=== PATIENT | male | born 1955 ===

== ENCOUNTER 2020-08-09 09:32 | Outpatient (REF) | payer MEDICARE, MEDICAID, SELFPAY ==
[2020-08-09 12:23] LABS: Vitamin D 25-OH Total 5.8 ng/mL (>30)
[2020-08-09 12:55] LABS: Alanine Aminotransferase 56 U/L (0-40); Anion Gap 16 (12-20); Aspartate Amino Transferase 72 U/L (5-37); Blood Urea Nitrogen 11 mg/dL (9-16); Calcium 8.5 mg/dL (8.4-10.2); Carbon Dioxide 24 mmol/L (22-29); Chloride 102 mmol/L (96-108); Cholesterol 263 mg/dL; Estimated Glomerular Filt Rate > 60; Glucose Fasting 245 mg/dL (60-99); HDL Cholesterol 32 mg/dL; Potassium 3.9 mmol/L (3.3-5.1); Sodium 138 mmol/L (135-145); Triglycerides 807 mg/dL
== END 2020-08-09 09:33 | disposition home or self-care (01) ==
LOC: HO.HMGCLDS 09:32
PROVIDERS: PCP Internal Medicine; Visit Provider Internal Medicine
DX: E78.2 Mixed hyperlipidemia (principal); I10 Essential (primary) hypertension
CPT/HCPCS: 36415; 80048; 80061; 82306; 84450; 84460

== ENCOUNTER 2020-08-22 13:57 | Outpatient (REF) | payer MEDICARE, MEDICAID, SELFPAY ==
--- NOTE | ~2020-08-22 | MM_ITS ---
EXAMINATION: MM DIAGNOSTIC DIGITAL BREAST TOMOSYNTHESIS, BILATERAL US DIAGNOSTIC ULTRASOUND BREAST, RIGHT CLINICAL INFORMATION: 64-year-old male with tenderness and mild fullness retroareolar right breast. No discharge. No prior breast imaging. No known family history breast cancer. COMPARISON: None (current study represents initial baseline exam). TECHNIQUE: Digital breast tomosynthesis is performed in both the craniocaudal and mediolateral oblique views along with computer-aided detection (CAD). Synthesized 2D images are generated from the tomosynthesis. Additional left MLO view is provided. Ultrasound right breast is targeted to the retroareolar and periareolar region. Grayscale imaging and color Doppler are performed without and with harmonics. FINDINGS: There are scattered areas of fibroglandular density (ACR BI-RADS breast composition Category b). There is mild to moderate right gynecomastia retroareolar breast with lesser involvement on left. There is no mass or architectural abnormality. No abnormal calcifications. The axilla and skin contours are unremarkable. Ultrasound right breast demonstrates retroareolar gynecomastia type ultrasound appearance. There is no cystic or solid mass or architectural abnormality. No skin thickening or edema tracking in the soft tissue planes. Results are discussed with the patient at time of visit. MM/MM tomosynthesis diagnostic BI IMPRESSION: Mild to moderate gynecomastia retroareolar pattern, greater on right. Unremarkable targeted right breast ultrasound. ASSESSMENT: BI-RADS 2: Benign RECOMMENDATION: Patient should be managed based on the clinical impression.
== END 2020-08-22 13:58 | disposition home or self-care (01) ==
LOC: HO.MAMMO 13:57
PROVIDERS: PCP Internal Medicine; Visit Provider Internal Medicine
DX: N63.41 Unspecified lump in right breast, subareolar (principal)
CPT/HCPCS: 76642; 77062; 77066

== ENCOUNTER → 2021-05-16 10:23 | Outpatient (BNVA) | payer MEDICARE, SELFPAY | PROVIDERS: PCP Internal Medicine; Visit Provider Surgery | DX: R22.2 Localized swelling, mass and lump, trunk (principal); N28.1 Cyst of kidney, acquired; Z79.899 Other long term (current) drug therapy; Z79.4 Long term (current) use of insulin | CPT/HCPCS: 99212 ==

== ENCOUNTER → 2021-06-20 07:54 | Outpatient (BNVA) | payer MEDICARE, SELFPAY | PROVIDERS: PCP Internal Medicine; Visit Provider Surgery | DX: R22.2 Localized swelling, mass and lump, trunk (principal); C79.51 Secondary malignant neoplasm of bone; C64.9 Malignant neoplasm of unspecified kidney, except renal pelvis | CPT/HCPCS: 99212 ==

== ENCOUNTER 2022-01-31 07:17 | Outpatient (REF) | payer OTHER, SELFPAY ==
[2022-01-31 12:15] LABS: Alanine Aminotransferase 22 U/L (0-40); Anion Gap 11 (12-20); Aspartate Amino Transferase 32 U/L (5-37); Blood Urea Nitrogen 10 mg/dL (9-16); Calcium 9.8 mg/dL (8.4-10.2); Carbon Dioxide 30 mmol/L (22-29); Chloride 96 mmol/L (96-108); Cholesterol 265 mg/dL; Estimated Glomerular Filt Rate > 60; Free T4 (Free Thyroxine) 1.02 ng/dL (0.71-1.85); Glucose Fasting 171 mg/dL (60-99); HDL Cholesterol 36 mg/dL; LDL Cholesterol Calculated 152 mg/dl; Potassium 4.2 mmol/L (3.3-5.1); Sodium 133 mmol/L (135-145); Thyroid Stimulating Hormone 36.12 uIU/mL (0.32-4.0); Triglycerides 385 mg/dL; Vitamin D 25-OH Total 9.4 ng/mL (>30)
[2022-01-31 12:32] LABS: Folate 14.4 ng/mL (> or = 4.0); Vitamin B12 293 pg/mL (200-900)
[2022-02-02 05:04] LABS: LDL Cholesterol Direct 166 mg/dL (<100)
== END 2022-01-31 07:18 | disposition home or self-care (01) ==
LOC: HO.HMGCLDS 07:17
PROVIDERS: PCP Internal Medicine; Visit Provider Internal Medicine
DX: C64.9 Malignant neoplasm of unspecified kidney, except renal pelvis (principal); C79.51 Secondary malignant neoplasm of bone; E03.9 Hypothyroidism, unspecified; E78.2 Mixed hyperlipidemia; I10 Essential (primary) hypertension; Z78.9 Other specified health status
CPT/HCPCS: 36415; 80048; 80061; 82306; 82607; 82746; 83721; 84439; 84443; 84450; 84460

== ENCOUNTER 2022-03-16 11:34 | Outpatient (REF) | payer OTHER, SELFPAY ==
[2022-03-16 13:58] LABS: MANUAL DIFF FLAG NO
[2022-03-16 14:03] LABS: Basophils Percent Auto 0.9 % (0-2); Eosinophils Absolute Auto 0.3 X10*3/uL (0.0-0.4); Eosinophils Percent Auto 9.2 % (0-4); Hematocrit 34.4 % (42.0-52.0); Hemoglobin 12.2 g/dl (14.0-18.0); Lymphocytes Absolute Auto 1.7 X10*3/uL (1.2-4.9); Lymphocytes Percent Auto 51.7 % (20-40); Mean Corpuscular HGB Conc 35.5 g/dl (31.0-36.0); Mean Corpuscular Hemoglobin 32.7 pg (27.0-33.0); Mean Corpuscular Volume 92.2 fL (80.0-98.0); Monocytes Absolute Auto 0.2 X10*3/uL (0.1-1.2); Monocytes Percent Auto 5.2 % (2-11); Neutrophils Absolute Auto 1.1 x10*3/uL (2.0-8.3); Platelet Count 181 X10*3/uL (160-400); Red Blood Count 3.73 X10*6/uL (4.60-5.80); Red Cell Distribution Width 15.3 % (11.0-16.0); White Blood Count 3.3 X10*3/uL (4.8-10.8)
[2022-03-16 14:16] LABS: Alanine Aminotransferase 19 U/L (0-40); Albumin Level 4.1 g/dL (3.5-5.0); Alkaline Phosphatase 112 U/L (39-117); Anion Gap 15 (12-20); Aspartate Amino Transferase 31 U/L (5-37); Bilirubin Total 0.8 mg/dL (0.0-1.0); Blood Urea Nitrogen 11 mg/dL (9-16); Calcium 9.1 mg/dL (8.4-10.2); Carbon Dioxide 28 mmol/L (22-29); Chloride 97 mmol/L (96-108); Estimated Glomerular Filt Rate > 60; Glucose Random 252 mg/dL (60-115); Lipase 10 U/L (8-78); Potassium 3.8 mmol/L (3.3-5.1); Sodium 136 mmol/L (135-145); Total Protein 6.7 g/dL (6.5-8.0)
== END 2022-03-16 11:35 | disposition home or self-care (01) ==
LOC: HO.HMGCLDS 11:34
PROVIDERS: PCP Internal Medicine; Visit Provider Emergency Medicine
DX: R10.9 Unspecified abdominal pain (principal); R53.1 Weakness; R17 Unspecified jaundice
CPT/HCPCS: 36415; 80053; 83690; 85025

== ENCOUNTER 2022-04-16 10:57 | Outpatient (REF) | payer OTHER, SELFPAY ==
--- NOTE | ~2022-04-16 | XR_ITS ---
EXAMINATION: XR KNEE, RIGHT CLINICAL INFORMATION: Right knee pain. COMPARISON: None TECHNIQUE: Four views of the right knee. FINDINGS: No significant tricompartmental degenerative joint changes are seen. There is no acute fracture or dislocation. There is a small suprapatellar joint effusion. The soft tissues are unremarkable. XR/XR knee RT 4V IMPRESSION: Small suprapatellar joint effusion. No acute fracture or significant degenerative joint changes.
== END 2022-04-16 10:58 | disposition home or self-care (01) ==
LOC: HO.HMGCX 10:57
PROVIDERS: PCP Internal Medicine; Visit Provider Internal Medicine
DX: M25.561 Pain in right knee (principal)
CPT/HCPCS: 73564

== ENCOUNTER 2022-05-21 09:40 | Outpatient (REF) | payer OTHER, SELFPAY ==
--- NOTE | ~2022-05-21 | XR_ITS ---
EXAMINATION: XR KNEE AP STANDING X-ray right knee CLINICAL INFORMATION: Knee pain COMPARISON: X-ray right knee 04/16/2022 TECHNIQUE: AP bilateral standing view of the knees was obtained.) Right knee 1 skyline view FINDINGS: Right knee: Minimal medial compartment joint space narrowing. No acute fracture or dislocation. No abnormal soft tissue calcification. Left knee: Minimal medial compartment joint space narrowing. No acute findings.. XR/XR knee standing BI IMPRESSION: Right knee: Minimal medial compartment joint space narrowing
--- NOTE | ~2022-05-21 | XR_ITS ---
EXAMINATION: XR KNEE AP STANDING X-ray right knee CLINICAL INFORMATION: Knee pain COMPARISON: X-ray right knee 04/16/2022 TECHNIQUE: AP bilateral standing view of the knees was obtained.) Right knee 1 skyline view FINDINGS: Right knee: Minimal medial compartment joint space narrowing. No acute fracture or dislocation. No abnormal soft tissue calcification. Left knee: Minimal medial compartment joint space narrowing. No acute findings.. XR/XR knee RT 1V IMPRESSION: Right knee: Minimal medial compartment joint space narrowing
== END 2022-05-21 09:41 | disposition home or self-care (01) ==
LOC: HO.HOSX 09:40
PROVIDERS: Visit Provider Physician Assistant
DX: M23.91 Unspecified internal derangement of right knee (principal); M25.561 Pain in right knee; E11.65 Type 2 diabetes mellitus with hyperglycemia; E11.21 Type 2 diabetes mellitus with diabetic nephropathy; Z79.4 Long term (current) use of insulin
CPT/HCPCS: 20610; 73560; 73565; 99202; J1020

== ENCOUNTER 2022-09-14 11:34 | Outpatient (REF) | payer OTHER, SELFPAY ==
[2022-09-14 14:31] LABS: Alanine Aminotransferase 11 U/L (0-40); Anion Gap 12 (12-20); Aspartate Amino Transferase 23 U/L (5-37); Blood Urea Nitrogen 12 mg/dL (9-16); Calcium 9.6 mg/dL (8.4-10.2); Carbon Dioxide 32 mmol/L (22-29); Chloride 100 mmol/L (96-108); Cholesterol 155 mg/dL; Estimated Glomerular Filt Rate > 60; Glucose Fasting 229 mg/dL (60-99); HDL Cholesterol 39 mg/dL; LDL Cholesterol Calculated 57 mg/dl; Potassium 3.2 mmol/L (3.3-5.1); Sodium 141 mmol/L (135-145); Triglycerides 296 mg/dL
[2022-09-14 15:22] LABS: Vitamin D 25-OH Total 33.8 ng/mL (>30)
== END 2022-09-14 11:35 | disposition home or self-care (01) ==
LOC: HO.HMGCLDS 11:34
PROVIDERS: PCP Internal Medicine; Visit Provider Internal Medicine
DX: E55.9 Vitamin D deficiency, unspecified (principal); E78.2 Mixed hyperlipidemia; F32.A Depression, unspecified; I10 Essential (primary) hypertension
CPT/HCPCS: 36415; 80048; 80061; 82306; 84450; 84460

== ENCOUNTER 2022-09-18 12:21 | Outpatient (REF) | payer OTHER, SELFPAY ==
[2022-09-18 15:55] LABS: Magnesium 1.3 mg/dL (1.6-2.6); Potassium 3.5 mmol/L (3.3-5.1)
== END 2022-09-18 12:22 | disposition home or self-care (01) ==
LOC: HO.HMGCLDS 12:21
PROVIDERS: PCP Internal Medicine; Visit Provider Internal Medicine
DX: E87.6 Hypokalemia (principal)
CPT/HCPCS: 36415; 83735; 84132

== ENCOUNTER 2022-09-21 09:22 | Outpatient (REF) | payer OTHER, SELFPAY ==
[2022-09-21 12:47] LABS: Anion Gap 12 (12-20); Blood Urea Nitrogen 8 mg/dL (9-16); Calcium 8.9 mg/dL (8.4-10.2); Carbon Dioxide 26 mmol/L (22-29); Chloride 103 mmol/L (96-108); Estimated Glomerular Filt Rate > 60; Glucose Random 236 mg/dL (60-115); Magnesium 1.5 mg/dL (1.6-2.6); Potassium 3.9 mmol/L (3.3-5.1); Sodium 137 mmol/L (135-145)
== END 2022-09-21 09:23 | disposition home or self-care (01) ==
LOC: HO.HMGCLDS 09:22
PROVIDERS: PCP Internal Medicine; Visit Provider Internal Medicine
DX: E87.6 Hypokalemia (principal); R79.0 Abnormal level of blood mineral
CPT/HCPCS: 36415; 80048; 83735

== ENCOUNTER 2022-09-25 13:45 | Outpatient (AMB) | payer OTHER, SELFPAY ==
--- NOTE | 2022-09-25 13:55 | A.OFFPC_ITS ---
Vital Signs 09/25/22 14:05 Height 5 ft 7 in Weight 195 lb BMI 30.5 BP 130/80 Blood Pressure Location Rt brachial Position Sitting Pulse 83 Pulse Source Pulse Oximeter Pulse Oximetry (%) 95 Oxygen Delivery Method Room Air Intake Visit Reasons: follow up labs Intake Note: Pt is here today to f/u labs Allergies SHELLFISH Allergy (Unknown, Uncoded 09/25/22 15:51) THROAT SWELLING shellfish Allergy (Unknown, Uncoded 09/25/22 15:51) anaphylaxis Medication List - Last Reconciled 09/25/22 by Preeti Ernandez MD albuterol sulfate 90 mcg/actuation (ProAir HFA) 2 puffs inhalation Q6H PRN alcohol swabs (Alcohol Pads) 1 pad topical TID amlodipine 10 mg PO DAILY cholecalciferol (vitamin D3) 50,000 units PO QWEEK dicyclomine 20 mg PO ONCE escitalopram oxalate 20 mg PO DAILY fentanyl 50 mcg/hr 1 patch topical Q3D [four prong cane use as directed; ] gemfibrozil 600 mg PO BID hydrochlorothiazide 12.5 mg PO QAM insulin degludec (Tresiba FlexTouch U-200 insulin) 100 units subcut BEDTIME insulin regular human 130 units in the am and 90 units pm subcut 2 times a day; levothyroxine 150 mcg PO DAILY lisinopril 40 mg PO DAILY magnesium sulfate 200 mg (2 x 100 mg) PO BID 5 days ondansetron HCl 8 mg PO ONCE PRN oxycodone ER (OxyContin) ea PO pantoprazole 40 mg PO DAILY potassium chloride ER 20 mEq PO DAILY rosuvastatin 5 mg PO Q2D 3 months sunitinib malate 0 mg PO Tobacco use date assessed: 09/25/22 Last assessed Fall Risk: 09/25/22 Dental Screening Dental Screen Date: 09/25/22 HPI follow up labs HPI Details 66-year-old male with history of metastatic renal cancer, currently insulin followed by oncology at [facility], recently diagnosed to have hypomagnesemia and placed on magnesium supplement, here today for follow-up. Had recent labs done which showed magnesium level now up to 1.5 mg per dL. He is currently being followed by Dr. Singh for his diabetes mellitus, but has been having hard time scheduling an appointment as they have moved to clinic to [facility]. Patient states that he will just go to her new office and schedule his follow-up appointment. He also has hypothyroidism currently taking levothyroxine 150 mcg daily, but has not yet had his thyroid levels checked he also complains of sudden onset again of swelling and pain and increased warmth over right knee, which has been present now for the last 5 days. No history of any trauma to the said joint. 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 Brother Substance use disorder Sister No problems noted. Sister No problems noted. Sister No problems noted. Son No problems noted. Son No problems noted. Social History Housing: Other Housing Other:: mobile home Alcohol intake: never Patient Tobacco Use Status: Never used Tobacco e-Cigarette/Vaping Use: Never Used service: No Current occupational status: unemployed Cognitive needs: Yes Hearing needs: No Vision needs: Yes Questionnaire PHQ-9 Over the last 2 weeks, how often have you been bothered by any of the following problems? Depression Screening Interpretation: Positive Depression Screening Follow-up: Existing condition and In treatment Source: Developed by Drs. Kendall Mckinnon, Mary Wetzel, Tee Moore and colleagues, with an educational estella from [employer]. Thrive Questionnaire Date Thrive assessed: 04/16/22 CRISS-7 AMB Questionnaire CRISS-7 Date CRISS - 7 assessed: 04/16/22 Source: Developed by Drs. Kendall Mckinnon, Mary Wetzel, Tee Moore and colleagues, with an educational estella from [employer]. Review of Systems Const All systems reviewed & are unremarkable except as noted in HPI and below Denies fatigue GI Reports abdominal pain (Chronic) and Denies melena Musc Reports as per HPI Endo Denies fatigue, Denies polyphagia, Denies polydipsia and Denies polyuria Physical exam (Primary Care) Vital Signs: Last Vital Signs Pulse 83 09/25/22 14:05 BP 164/80 H 09/25/22 14:05 Pulse Ox 95 09/25/22 14:05 Oxygen Delivery Method Room Air 09/25/22 14:05 BMI result Body Mass Index 30.5 Tobacco/Smoking Status: Tobacco use Status Tobacco use date assessed 09/25/22 09/25/22 13:58 Patient Tobacco Use Status Never used Tobacco 09/25/22 13:55 e-Cigarette/Vaping Use Never Used 09/25/22 13:55 Depression Screening Interpretation: Positive Depression Screening Follow-up: Existing condition and In treatment Thrive Assessment: Date of Thrive Assessment Date Thrive assessed 04/16/22 09/25/22 13:55 Const Other: Alert oriented x3, in mild pain distress, ambulatory with a limping gait favoring right leg, accompanied by sister Neck Neck: Yes full ROM, Yes no lymphadenopathy and Yes supple Thyroid: Thyroid normal Resp Auscultation: clear to auscultation bilaterally Cardio Other: S1-S2 present regular rate and GI Inspection: Yes obesity Palpation (GI): Tenderness to palpation present (GI) in the epigastrum and in the RUQ, no guarding, Hepatomegaly present and no masses Extrem Other: Diffuse swelling over the anteromedial aspect of right knee, area was tender to palpation and warm to touch, decreased range of motion due to pain Results Reviewed Results Reviewed: ENTERED: 09/14/22-[address]: ORDERED: Met Prof Fast, AST, ALT, Lipid Panel, Vitamin D 25-OH Test Result Flag Reference Site Sodium 141 135-145 mmol/L Potassium 3.2 L 3.3-5.1 mmol/L CL 100 96-108 mmol/L CO2 32 H 22-29 mmol/L Gap 12 12-20 BUN 12 9-16 mg/dL Creat 0.78 0.5-1.4 mg/dL EGFR > 60 NOTE: For -Lao individuals, multiply the result by 1.210. Chronic Kidney Disease: Estimated GFR < 60 mL/min/1.73m2 Severe Kidney Disease: Estimated GFR < 15 mL/min/1.73m2 FBS 229 H 60-99 mg/dL A fasting glucose of 126 mg/dl or greater on more than one occasion is considered diagnostic of diabetes. CA 9.6 8.4-10.2 mg/dL AST (GOT) 23 5-37 U/L ALT (GPT) 11 0-40 U/L Triglyceride 296 mg/dL Desirable Triglyceride: less than 150 mg/dL Borderline High Triglyceride 150-199 mg/dL High Triglyceride: 200-499 mg/dL Very High Triglyceride: greater than or equal to 5OO mg/dL Chol 155 mg/dL Desirable Cholesterol: less than 200 mg/dL Borderline High Cholesterol: 200-239 mg/dL High Cholesterol: greater than 239 mg/dL LDL Calculated 57 mg/dl Desirable LDL: less than 100 mg/dL Near Optimal/Above Optimal LDL: 110-129 mg/dL Borderline High LDL: 130-159 mg/dL High LDL: 160-189 mg/dL Very High LDL: greater than or equal to 190 mg/dL HDL 39 mg/dL Desirable HDL: greater than 40 mg/dL Note: This HDL assay may give artificially low results in patients with liver disease. Vit D 25-OH Tot 33.8 >30 ng/mL Health Based Reference Values* < 20 ng/mL Deficient 20-30 ng/mL Insufficient > 30 ng/mL Sufficient *Rico MORAN. N Engl J Med. 2007;357:266-280 Care must be taken in interpreting Vitamin D results from different laboratories and methodologies. Published data demonstrated that results from patients undergoing hemodialysis may show a negative bias when tested with various automated 25-OH vitamin D assays when compared to LC-MS/MS. When testing samples from patients whose predominant form of Vitamin D is Vitamin D2, such as patients receiving Vitamin D2 supplementation, results that are subtherapeutic should be confirmed with another method such as LC-MS/MS. RUN: 09/25/22 1410 PAGE 1 [facility] [address] [place] [id number] Cell Tower Climber: Mike Pillai M.D. Specimen Inquiry Name: Ifeanyi Bonner Age/Sex: 66/M : 1955 Unit#: [id number] Attend Dr: Jose Raul Donnelly MD Re09/21/22 Status: DEP [facility] Dis[facility]: SPEC : [id number] DELMA: 09/21/22 STATUS: COMP REQ : [id number] RECD: 09/21/[address] [facility] DR: Jose Raul Donnelly MD COMP: 09/21/22 ENTERED: 09/21/[address]: Preeti Ernandez MD ORDERED: BMP, MG Test Result Flag Reference Site Sodium 137 135-145 mmol/L Potassium 3.9 3.3-5.1 mmol/L CL 103 96-108 mmol/L CO2 26 22-29 mmol/L Gap 12 12-20 BUN 8 L 9-16 mg/dL Creat 0.79 0.5-1.4 mg/dL EGFR > 60 NOTE: For -Lao individuals, multiply the r esult by 1.210. Chronic Kidney Disease: Estimated GFR < 60 mL/min/1.73m2 Severe Kidney Disease: Estimated GFR < 15 mL/min/1.73m2 Glucose, Random 236 H 60-115 mg/dL CA 8.9 # 8.4-10.2 mg/dL Magnesium 1.5 L 1.6-2.6 mg/dL Assessment and Plan Assessment & Plan (1) Low magnesium level: Code(s): R79.0 - Abnormal level of blood mineral Plan: Continue with magnesium replacement for 5 days and will repeat another magnesium level 09/30/2022 (2) Hypothyroidism: Code(s): E03.9 - Hypothyroidism, unspecified Plan: Continue with levothyroxine 150 mcg daily in a.m., repeat another TSH and free T4 09/30/2022 (3) Primary malignant neoplasm of kidney with 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 Has been taking ibuprofen which affords only temporary relief has tried icing apply moist heat to affected joint which has not been helping. 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
[2022-09-25 14:05] VITALS: BP 130/80; PULSE 83; O2SAT 95; BMI 30.5
== END 2022-09-25 15:39 | disposition home or self-care (01) ==
PROVIDERS: PCP Internal Medicine; Visit Provider Internal Medicine
DX: R79.0 Abnormal level of blood mineral (principal); E03.9 Hypothyroidism, unspecified; C64.9 Malignant neoplasm of unspecified kidney, except renal pelvis; M25.561 Pain in right knee
CPT/HCPCS: 99213

== ENCOUNTER 2022-09-29 10:36 | Outpatient (REF) | payer OTHER, SELFPAY ==
[2022-09-29 14:03] LABS: Alanine Aminotransferase 11 U/L (0-40); Albumin Level 3.7 g/dL (3.5-5.0); Alkaline Phosphatase 79 U/L (39-117); Amylase 41 U/L (28-100); Anion Gap 17 (12-20); Aspartate Amino Transferase 19 U/L (5-37); Bilirubin Total 0.6 mg/dL (0.0-1.0); Blood Urea Nitrogen 10 mg/dL (9-16); Calcium 9.5 mg/dL (8.4-10.2); Carbon Dioxide 25 mmol/L (22-29); Chloride 102 mmol/L (96-108); Estimated Glomerular Filt Rate > 60; Glucose Random 269 mg/dL (60-115); Lipase 10 U/L (8-78); Potassium 5.1 mmol/L (3.3-5.1); Sodium 139 mmol/L (135-145); Total Protein 6.3 g/dL (6.5-8.0)
[2022-09-29 14:06] LABS: Basophils Percent Auto 0.8 % (0-2); Eosinophils Absolute Auto 0.3 X10*3/uL (0.0-0.4); Eosinophils Percent Auto 11.2 % (0-4); Hematocrit 33.4 % (42.0-52.0); Hemoglobin 11.5 g/dl (14.0-18.0); Imm Gran Abs Auto 0.01 X10*3/uL (0.00-0.03); Imm Gran Pct Auto 0.4 % (0.0-0.4); Immature Retic Fraction 16.9 % (2.3-13.4); Lymphocytes Absolute Auto 1.2 X10*3/uL (1.2-4.9); Lymphocytes Percent Auto 49.2 % (20-40); MANUAL DIFF FLAG SCAN; Mean Corpuscular HGB Conc 34.4 g/dl (31.0-36.0); Mean Corpuscular Hemoglobin 34.1 pg (27.0-33.0); Mean Corpuscular Volume 99.1 fL (80.0-98.0); Monocytes Absolute Auto 0.1 X10*3/uL (0.1-1.2); Monocytes Percent Auto 3.7 % (2-11); Neutrophils Absolute Auto 0.8 x10*3/uL (2.0-8.3); Neutrophils Percent Auto 34.7 % (45-73); Platelet Count 195 X10*3/uL (160-400); Red Blood Count 3.37 X10*6/uL (4.60-5.80); Red Cell Distribution Width 14.3 % (11.0-16.0); Reticulocyte Percent 2.8 % (0.5-1.8); Reticulocytes Absolute 0.094 X10*6/uL (0.026-0.095); SCAN SMEAR FLAG 1
[2022-09-29 14:09] LABS: White Blood Count 2.4 X10*3/uL (4.8-10.8)
[2022-09-29 14:13] LABS: Magnesium 1.5 mg/dL (1.6-2.6); Potassium 4.5 mmol/L (3.3-5.1)
[2022-09-29 14:31] LABS: Thyroid Stimulating Hormone 31.69 uIU/mL (0.32-4.0)
[2022-09-29 14:53] LABS: SLIDE REVIEW VERIFIED
[2022-09-29 14:57] LABS: Lactate Dehydrogenase 288 U/L (118-273)
== END 2022-09-29 10:37 | disposition home or self-care (01) ==
LOC: HO.HMGCLDS 10:36
PROVIDERS: Internal Medicine; Absent Provider Internal Medicine; PCP Internal Medicine; Referring Provider Internal Medicine Hematology & Oncology; Visit Provider Internal Medicine
DX: E03.9 Hypothyroidism, unspecified (principal); E87.6 Hypokalemia; R79.0 Abnormal level of blood mineral; C64.1 Malignant neoplasm of right kidney, except renal pelvis; R10.10 Upper abdominal pain, unspecified
CPT/HCPCS: 36415; 80053; 82150; 83615; 83690; 83735; 84132; 84439; 84443; 85025; 85045

== ENCOUNTER 2022-10-13 11:26 | Outpatient (AMB) | payer OTHER, SELFPAY ==
[2022-10-13 11:37] VITALS: BMI 30.5
--- NOTE | 2022-10-13 11:37 | A.OFFVIS_ITS ---
Intake Vital Signs 10/13/22 11:37 Height 5 ft 7 in Weight 195 lb BMI 30.5 Intake Visit Reasons: OV- Right knee pain INJ 05/21/22 Intake Note: Ifeanyi is a 66 year old male who presents today for a follow up of right knee, last injection 05/21/22. Patient reports good relief with last injection and would like to repeat injection. Allergies SHELLFISH Allergy (Unknown, Uncoded 10/13/22 11:39) THROAT SWELLING shellfish Allergy (Unknown, Uncoded 10/13/22 11:39) anaphylaxis HPI OV- Right knee pain INJ 05/21/22 HPI Details 66-year-old male who presents in the office today for a follow up of right knee pain. The patient had a cortisone injection in the right knee on 05/21/2022. Patient has a medical history of diabetes mellitus. 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 Brother Substance use disorder Sister No problems noted. Sister No problems noted. Sister No problems noted. Son No problems noted. Son No problems noted. Social History Housing: Other Housing Other:: mobile home Alcohol intake: never Patient Tobacco Use Status: Never used Tobacco e-Cigarette/Vaping Use: Never Used service: No Current occupational status: unemployed Cognitive needs: Yes Hearing needs: No Vision needs: Yes Review of Systems Const All systems reviewed & are unremarkable except as noted in HPI and below Physical Exam Vital Signs: BMI result Body Mass Index 30.5 Const General: cooperative, healthy appearing and no acute distress Resp Effort & Inspection: normal respiratory effort and able to speak in complete sentences Cardio Rate: regular rate Peripheral pulses: Peripheral pulses 2+ throughout GI Palpation (GI): Soft to palpation Skin Lesions: no lesions Rashes: no rashes Extrem Other: Right knee: Normal to inspection. No ecchymosis, erythema, or joint effusion. No tenderness to palpation to the lateral joint line. Tenderness to palpation of the medial joint line. Full knee extension and flexion. Negative Ganesh's. NVI. Office Procedures Joint Injection/Drain Joint Injection/Drain Primary Site: right knee Prep: site was prepped using aseptic technique, ethochloride spray was applied and injection warnings given Injected: 40 mg of, DepoMedrol, with 8 mL of (2% plain lido ) and in the joint Approach Used: anterolateral Procedure: The patient tolerated the procedure well, but had some pain with the injection and there was some relief with the local anesthesia Coding 23408 - Large joint Procedure code (CPT) selection complete Results Reviewed Results Reviewed: 10/13/22 11:31 Lidocaine HCl 2 % MPF [Xylocaine 2 % MPF] 5 ml .ROUTE .STK-MED ONE methylPREDNISolone acetate [DEPO-MedroL] 40 mg .ROUTE .STK-MED ONE Assessment & Plan Assessment & Plan (1) Internal derangement of right knee: Code(s): M23.91 - Unspecified internal derangement of right knee (2) Diabetes mellitus with hyperglycemia, with long-term current use of insulin: Comment: Followed by Dr. Singh at [facility] Code(s): E11.65 - Type 2 diabetes mellitus with hyperglycemia; Z79.4 - senior living (current) use of insulin (3) Diabetes mellitus with nephropathy: Comment: (IDDM2, with CKD/nephropathy) Code(s): E11.21 - Type 2 diabetes mellitus with diabetic nephropathy Plan Mr. Bonner is a 66-year-old male who presents in the office today for a follow up of right knee pain. The patient had a cortisone injection in the right knee on 05/21/2022. Patient has a medical history of diabetes mellitus. The patient was offered a crortisone injection in the right knee with 40 mg of DepoMedrol. The patient was explained the risk, benefits, and alternatives to receiving this injection. After receiving consent for the injection, the patient had the procedure done while in office today. The patient tolerated the proce dure well with no complications. Due to the patient?s history of diabetes, they were instructed to monitor his blood glucose level. The patient was informed that they could see a rise in their numbers and if the numbers became too high, they were instructed to call their PCP. The patient was also informed that they could have facial flushing as a side effect of the injection but this will pass. Follow up will be PRN, or sooner if needed. Patient Instructions: Scribed for Norma Oneill PA-C by Aura Persaud medical scientific liaison, on 10/13/2022 at 11:28 am, EST. Coding Level of Care Code Est Pt Level 4 (40709) Diagnoses Internal derangement of right knee M23.91 Diabetes mellitus with hyperglycemia, with long-term current use of insulin E11.65; Z79.4 Diabetes mellitus with nephropathy E11.21 CPT Codes Coding - 78555 Large joint: 91206 - Large joint ([id number])
== END 2022-10-13 11:46 | disposition home or self-care (01) ==
PROVIDERS: PCP Internal Medicine; Visit Provider Physician Assistant
DX: M23.91 Unspecified internal derangement of right knee (principal); Z79.4 Long term (current) use of insulin
CPT/HCPCS: 20610; 99214

== ENCOUNTER → 2022-10-13 11:26 | Outpatient (BNVA) | payer OTHER, SELFPAY | PROVIDERS: PCP Internal Medicine; Visit Provider Physician Assistant | DX: M23.91 Unspecified internal derangement of right knee (principal); E11.65 Type 2 diabetes mellitus with hyperglycemia; E11.22 Type 2 diabetes mellitus with diabetic chronic kidney disease; N18.9 Chronic kidney disease, unspecified; E11.21 Type 2 diabetes mellitus with diabetic nephropathy | CPT/HCPCS: 20610; 99212; J1020 ==

== ENCOUNTER 2022-11-23 13:28 | Outpatient (AMB) | payer OTHER, SELFPAY ==
[2022-11-23 13:55] VITALS: BP 160/78; PULSE 82; O2SAT 98; BMI 29.3
--- NOTE | 2022-11-23 13:55 | A.OFFPC_ITS ---
Vital Signs 11/23/22 13:55 Height 5 ft 7 in Weight 187 lb BMI 29.3 BP 160/78 H Blood Pressure Location Lt brachial Position Sitting Pulse 82 Pulse Source Pulse Oximeter Pulse Oximetry (%) 98 Oxygen Delivery Method Room Air Intake Visit Reasons: Pre op cataracts surgery 11/30 & 12/14 Intake Note: patient is here today for his Pre op cataracts surgery on 11/30 & 12/14 [employer] Associate: Present Accompanied by: caregiver (Dionne) Allergies shellfish derived Allergy (Severe, Verified 11/23/22 14:53) Anaphylaxis Medication List - Last Reconciled 11/23/22 by Preeti Ernandez MD albuterol sulfate 90 mcg/actuation (ProAir HFA) 2 puffs inhalation Q6H PRN alcohol swabs (Alcohol Pads) 1 pad topical TID amlodipine 10 mg PO DAILY cholecalciferol (vitamin D3) 50,000 units PO QWEEK 3 months dicyclomine 20 mg PO ONCE escitalopram oxalate 20 mg PO DAILY famotidine 40 mg PO DAILY fentanyl 50 mcg/hr 1 patch topical Q3D [four prong cane use as directed; ] gemfibrozil 600 mg PO BID hydrochlorothiazide 12.5 mg PO QAM insulin degludec (Tresiba FlexTouch U-200 insulin) 120 units subcut BEDTIME levothyroxine 150 mcg PO DAILY lisinopril 40 mg PO DAILY magnesium oxide 250 mg PO DAILY ondansetron HCl 8 mg PO ONCE PRN oxycodone ER (OxyContin) ea PO pantoprazole 40 mg PO DAILY potassium chloride ER 20 mEq PO DAILY rosuvastatin 5 mg PO Q2D 3 months sunitinib malate 0 mg PO Tobacco use date assessed: 11/23/22 Fall risk assessment: 2 + Falls in past year Last assessed Fall Risk: 11/23/22 Dental Screening Dental Screen Date: 11/23/22 Did you have a dental visit in the last 12 months?: Yes Did you have a dental problem in the last 6 months where you did not have access to dental care?: No Was dental information given to patient?: Patient has dentist HPI Pre op cataracts surgery 11/30 & 12/14 HPI Details 66 -year-old male with poorly controlled diabetes mellitus, Hypertension, Hypothyroidism, mixed dyslipidemia , Depression , and has metastatic renal carcinoma here today for preoperative exam for cataract surgery scheduled for 11/30/2022 for the left eye and 12/14/2022 for the right eye, requested by Dr. Chappell. He has been compliant with taking his medications, eats usually once meal a day, has been checking his sugar 3 to 4 times a day and would occasionally get several episodes when it is high. He was last seen by his master black belt Dr. Singh 10/15/22, with a hemoglobin A1c at that time at 9%, but a repeat hemoglobin A1c done here the clinic came back at 11%. His blood pressure also has been running high today. He goes to podiatry, up-to-date with his follow-ups. [facility] Medical History Primary malignant neoplasm of kidney with metastasis from kidney to other site Knee pain, right Depression Vitamin D deficiency Vegetarian diet Hypothyroidism Obesity Mass of chest wall, right Migraine Diabetes mellitus with hyperglycemia, with long-term current use of insulin Diabetes mellitus with nephropathy Essential hypertension Mixed dyslipidemia Surgical History History of appendectomy (~1973) History of eye surgery (~2017) History of nephrectomy, left History of laparoscopic cholecystectomy (~2010) Family History Father Heart disease Mother No problems noted. Brother Substance use disorder Sister No problems noted. Sister No problems noted. Sister No problems noted. Son No problems noted. Son No problems noted. Social History Housing: Other Housing Other:: mobile home Alcohol intake: never Patient Tobacco Use Status: Never used Tobacco e-Cigarette/Vaping Use: Never Used service: No Current occupational status: unemployed Cognitive needs: Yes Hearing needs: No Vision needs: Yes Questionnaire Thrive Questionnaire Date Thrive assessed: 04/16/22 AUDIT C Alcohol Use Questionnaire (AUDIT-C) 1. How often do you have a drink containing alcohol?: Never Total Score: 0 CRISS-7 AMB Questionnaire CRISS-7 Date CRISS - 7 assessed: 04/16/22 Source: Developed by Drs. Kendall Mckinnon, Mary Wetzel, Tee Moore and colleagues, with an educational estella from [employer]. Review of Systems Const Reports fatigue (Easy fatigability), Denies fever(s), Denies frequent falls, Denies headache(s) and Denies snoring Eyes Reports blurry vision (Bilateral) ENT Denies dizziness, Reports dry mouth, Denies headache(s), Denies nasal congestion, Denies sinus pain and Denies sore throat Card Denies chest pain, Denies chest pain with activity, Denies rapid heart rate, Denies edema, Denies irregular heart rhythm, Reports lightheadedness (Intermittent), Denies dyspnea and Denies dyspnea on exertion Resp Denies cough, Denies dyspnea, Denies dyspnea on exertion, Denies snoring and Denies wheezing GI Reports abdominal pain (Chronic), Denies melena, Reports bloating and Denies hematochezia Denies hematuria, Denies dysuria and Reports urinary frequency Musc Reports arthralgias (Both knees) and Denies joint swelling Skin/Breast Denies lesions and Denies rash Neuro Reports burning sensations (In both feet), Denies dizziness, Denies frequent fal ls, Denies headache(s) and Reports Sensory deficit (Neuro) (Both feet) Psych Reports no additional complaints Endo Reports fatigue (Easy fatigability), Denies polyphagia, Denies polydipsia and Reports polyuria (Occasionally at night) Carlos Manuel/Lymph Reports no additional complaints Aller/Immun Denies wheezing Physical exam (Primary Care) Vital Signs: Last Vital Signs Pulse 82 11/23/22 13:55 BP 160/78 H 11/23/22 13:55 Pulse Ox 98 11/23/22 13:55 Oxygen Delivery Method Room Air 11/23/22 13:55 BMI result Body Mass Index 29.3 Tobacco/Smoking Status: Tobacco use Status Tobacco use date assessed 11/23/22 11/23/22 14:05 Patient Tobacco Use Status Never used Tobacco 11/23/22 14:05 e-Cigarette/Vaping Use Never Used 11/23/22 14:05 Thrive Assessment: Date of Thrive Assessment Date Thrive assessed 04/16/22 11/23/22 14:05 Const Other: Alert oriented x3, no acute cardiorespiratory distress noted, ambulatory dislocate, accompanied by GASOLINE ENGINE ASSEMBLER Orientation/consciousness: patient oriented x3 HENMT Head: Yes normocephalic Ears: external ears normal General nose exam: Normal external nose present Face and sinus: Yes face symmetric Mouth: Normal oral and palatal mucosa present, oropharynx normal, moist mucous membranes and moist mucous membranes abnormal Eyes General: appearance normal, both eyes and all related structures Neck Neck: Yes full ROM, Yes no lymphadenopathy and Yes supple Thyroid: Thyroid normal Resp Auscultation: clear to auscultation bilaterally Cardio Other: S1-S2 present regular rate and rhythm GI Inspection: Yes obesity Palpation (GI): Tenderness to palpation present (GI) in the epigastrum and in the RUQ, no guarding, Hepatomegaly present and no masses General: Yes no CVA tenderness Back/Spine/Pelvis Back: no CVA tenderness and No back tenderness Skin General skin exam: no rashes or lesions noted Neuro General: patient oriented x3, moves all extremities, no focal motor deficits and decrease sensation to monofilament (Both feet) Sensory Exam: Sensory deficit (Neuro) (Both feet) Extrem General: Yes normal to inspection, Yes full ROM, Yes no joint enlargement (Slight swelling right knee joint) and Yes pedal edema (Bilateral) Results AMB Hemoglobin A1c AMB Hemoglobin A1c 11.0 % Last Edit by Chandni Salazar CMA on 11/23/22 14:49 AMB Hemoglobin A1c AMB Hemoglobin A1c 11.0 % Last Edit by Chandni Salazar CMA on 11/23/22 15:14 Results Reviewed Results Reviewed: Laboratory Last Values Hgb A1c (Clinic) 11.0 % (4.0-6.0) H 11/23/22 14:53 Assessment and Plan Assessment & Plan (1) Diabetes mellitus with hyperglycemia, with long-term current use of insulin: Comment: Followed by Dr. 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 Up-to-date with his diabetes retinopathy and foot exam. Currently being followed by Dr. Singh hemoglobin A1c however today is up from 9% in September 2022 to 11% today. Advised to call and make an appointment to see Dr. Velez for medication adjustment. Recommend to get placed on the Dexcom glucose monitoring or JobalinestOncovision Marcia 3 for better glucose monitoring. (2) Preoperative examination: Code(s): Z01.818 - Encounter for other preprocedural examination Plan: [age]-year-old male poorly controlled diabetes mellitus, hypertension, dyslipidemia, depression, hypothyroidism, metastatic renal cell CA, here today for preoperative exam for cataract surgery scheduled for 11/30/2022 for the left eye and 12/14/2022 for the right eye, requested by Dr. Chappell. Blood glucose control however is suboptimal, with a hemoglobin A1c at this time at 11%. Would recommend postponing surgery until glucose control is improved (3) Primary malignant neoplasm of kidney with metastasis from kidney to other site: Code(s): C64.9 - Malignant neoplasm of unspecified kidney, except renal pelvis Plan: Currently being followed at [facility], on Sunitinib malate (4) Depression: Code(s): F32.A - Depression, unspecified Qualifiers: Depression Type: major depressive disorder Major depression recurrence: recurrent Active/Remission status: in partial remission Qualified Code(s): F33.41 - Major depressive disorder, recurrent, in partial remission Plan: Currently on escitalopram 20 mg daily (5) Hypothyroidism: Code(s): E03.9 - Hypothyroidism, unspecified Qualifiers: Hypothyroidism type: acquired Qualified Code(s): E03.9 - Hypothyroidism, unspecified Plan: Last TSH and free T4 was checked September 2022 with elevated TSH and low/ normal free T4 levels, and states that he feels fine on current dose of levothyroxine, 150 mcg once a day in a.m.. Currently being followed by endocrine clinic (6) Essential hypertension: Code(s): I10 - Essential (primary) hypertension Plan: Blood pressure today has been elevated, advised to continue with present dose of amlodipine, hydrochlorothiazide, and lisinopril 40 mg daily. Goal blood pressure less than 130/80. Advised to adhere to low-salt diet (7) Mixed dyslipidemia: Code(s): E78.2 - Mixed hyperlipidemia Plan: Last fasting lipids done August 2022 showed results within normal limits except for elevated triglycerides likely due to poorly controlled diabetes mellitus, will continue on rosuvastatin 5 mg every other day. 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 AMB Hemoglobin A1c Today E11.65 - Type 2 diabetes mellitus with hyperglycemia, Z79.4 - snf (current) use of insulin Coding Level of Care Code Est Pt Level 4 (04480) Diagnoses Diabetes mellitus with hyperglycemia, with long-term current use of insulin E11.65; Z79.4 Preoperative examination Z01.818 Primary malignant neoplasm of kidney with metastasis from kidney to other site C64.9 Recurrent major depressive disorder, in partial remission F33.41 Depression Type: major depressive disorder Major depression recurrence: recurrent Active/Remission status: in partial remission Acquired hypothyroidism E03.9 Hypothyroidism type: acquired Essential hypertension I10 Mixed dyslipidemia E78.2
== END 2022-11-23 15:17 | disposition home or self-care (01) ==
PROVIDERS: PCP Internal Medicine; Visit Provider Internal Medicine
DX: E11.65 Type 2 diabetes mellitus with hyperglycemia (principal); Z79.4 Long term (current) use of insulin; C64.9 Malignant neoplasm of unspecified kidney, except renal pelvis; F33.41 Major depressive disorder, recurrent, in partial remission; E03.9 Hypothyroidism, unspecified; I10 Essential (primary) hypertension; Z01.818 Encounter for other preprocedural examination; E78.2 Mixed hyperlipidemia
CPT/HCPCS: 83036; 99214

== ENCOUNTER 2022-12-11 08:58 | Outpatient (AMB) | payer OTHER, SELFPAY ==
[2022-12-11 09:20] VITALS: BP 180/80; PULSE 74; O2SAT 97; BMI 30.3
--- NOTE | 2022-12-11 09:20 | MHC.PC.OV ---
Vital Signs 12/11/22 09:20 Height 5 ft 7 in Weight 193 lb 6 oz BMI 30.3 BP 180/80 H Blood Pressure Location Rt brachial Position Sitting Pulse 74 Pulse Source Pulse Oximeter Pulse Oximetry (%) 97 Oxygen Delivery Method Room Air Intake Visit Reasons: [facility]-12/01-pneumonia Intake Note: pt is here for a HDF from [facility] pneumonia Allergies shellfish derived Allergy (Severe, Verified 12/11/22 10:04) Anaphylaxis Medication List - Last Reconciled 12/11/22 by Preeti Ernandez MD albuterol sulfate 90 mcg/actuation (ProAir HFA) 2 puffs inhalation Q6H PRN alcohol swabs (Alcohol Pads) 1 pad topical TID amlodipine 10 mg PO DAILY cholecalciferol (vitamin D3) 50,000 units PO QWEEK 3 months dicyclomine 20 mg PO ONCE escitalopram oxalate 20 mg PO DAILY famotidine 40 mg PO DAILY fentanyl 50 mcg/hr 1 patch topical Q3D [four prong cane use as directed; ] gemfibrozil 600 mg PO BID hydrochlorothiazide 12.5 mg PO QAM insulin degludec (Tresiba FlexTouch U-200 insulin) 120 units subcut BEDTIME levothyroxine 150 mcg PO DAILY lisinopril 40 mg PO DAILY ondansetron HCl 8 mg PO ONCE PRN oxycodone ER (OxyContin) mg PO DAILY pantoprazole 40 mg PO DAILY rosuvastatin 5 mg PO Q2D 3 months sunitinib malate 0 mg PO Tobacco use date assessed: 12/11/22 Fall risk assessment: 2 + Falls in past year Last assessed Fall Risk: 12/11/22 Dental Screening Dental Screen Date: 12/11/22 Did you have a dental visit in the last 12 months?: Yes Did you have a dental problem in the last 6 months where you did not have access to dental care?: No Was dental information given to patient?: Patient has dentist HPI [facility]-12/01-pneumonia HPI Details 67 year-old male with poorly controlled diabetes mellitus, Hypertension, Hypothyroidism, mixed dyslipidemia , Depression , and metastatic renal carcinoma, here for follow-up after recent ER visit at [facility] 10 days ago for pneumonia. He presented with complains of shortness of breath cough and chest pain present for the last 4 days. EKG done at the ER showed nonischemic changes, respiratory viral panel came back negative, white blood cell count was at 4.2. His chest x-ray showed findings consistent with pneumonia with right basilar airspace opacity concerning for infection. He was placed on dual antibiotic therapy with azithromycin for 4 days and Augmentin for 5 days. At present patient states that he has been a febrile, breathing back to baseline, but now having soft stools since starting antibiotics. Epigastric pain is unchanged. [facility] Medical History (Updated 03/21/23 @ 22:54 by Preeti Ernandez MD) Diarrhea Primary malignant neoplasm of kidney with metastasis from kidney to other site Knee pain, right Depression Vitamin D deficiency Vegetarian diet Hypothyroidism Obesity Mass of chest wall, right Migraine Diabetes mellitus with hyperglycemia, with long-term current use of insulin Diabetes mellitus with nephropathy Essential hypertension Mixed dyslipidemia Surgical History History of appendectomy (~1973) History of eye surgery (~2017) History of nephrectomy, left History of laparoscopic cholecystectomy (~2010) Family History Father Heart disease Mother No problems noted. Brother Substance use disorder Sister No problems noted. Sister No problems noted. Sister No problems noted. Son No problems noted. Son No problems noted. Social History Housing: Other Housing Other:: mobile home Alcohol intake: never Patient Tobacco Use Status: Never used Tobacco e-Cigarette/Vaping Use: Never Used service: No Current occupational status: unemployed Cognitive needs: Yes Hearing needs: No Vision needs: Yes Questionnaire Thrive Questionnaire Date Thrive assessed: 04/16/22 CRISS-7 AMB Questionnaire CRISS-7 Date CRISS - 7 assessed: 04/16/22 Source: Developed by Drs. Kendall Mckinnon, Mary Wetzel, Tee Moore and colleagues, with an educational estella from [employer]. Review of Systems Const Reports fatigue (Easy fatigability) and Denies fever(s) Eyes Reports blurry vision (Bilateral) ENT Reports dry mouth, Denies nasal congestion, Denies sinus pain and Denies sore throat Card Denies chest pain, Denies chest pain with activity, Denies edema and Denies dyspnea Resp Denies cough, Denies dyspnea and Denies wheezing GI Reports abdominal pain (Chronic), Denies melena, Reports bloating and Denies hematochezia Denies hematuria, Denies dysuria and Reports urinary frequency Musc Reports arthralgias (Both knees) and Denies joint swelling Skin/Breast Denies lesions and Denies rash Endo Reports fatigue (Easy fatigability), Denies polyphagia, Denies polydipsia and Reports polyuria (Occasionally at night) Carlos Manuel/Lymph Reports no additional complaints Aller/Immun Denies wheezing Physical exam (Primary Care) Vital Signs: Last Vital Signs Pulse 74 12/11/22 09:20 BP 180/80 H 12/11/22 09:20 Pulse Ox 97 12/11/22 09:20 Oxygen Delivery Method Room Air 12/11/22 09:20 BMI result Body Mass Index 30.3 Tobacco/Smoking Status: Tobacco use Status Tobacco use date assessed 12/11/22 12/11/22 09:30 Patient Tobacco Use Status Never used Tobacco 12/11/22 09:20 e-Cigarette/Vaping Use Never Used 12/11/22 09:20 Thrive Assessment: Date of Thrive Assessment Date Thrive assessed 04/16/22 12/11/22 09:20 Const Other: Alert oriented x3, no acute cardiorespiratory distress noted Orientation/consciousness: patient oriented x3 HENMT Ears: external ears normal General nose exam: Normal external nose present Face and sinus: Yes face symmetric Mouth: oropharynx normal and moist mucous membranes Neck Neck: Yes full ROM, Yes no lymphadenopathy and Yes supple Resp Auscultation: clear to auscultation bilaterally Cardio Other: S1-S2 present regular rate and rhythm GI Inspection: Yes obesity Palpation (GI): Tenderness to palpation present (GI) in the epigastrum and in the RUQ and no guarding Auscultation: Hyperactive bowel sounds present Neuro General: patient oriented x3, moves all extremities, no focal motor deficits and decrease sensation to monofilament (Both feet) Extrem General: Yes normal to inspection and Yes full ROM Assessment and Plan Assessment & Plan (1) Diarrhea: Code(s): R19.7 - Diarrhea, unspecified Qualifiers: Diarrhea type: unspecified type Qualified Code(s): R19.7 - Diarrhea, unspecified Plan: Patient has been on 2 antibiotics, will check for C difficile (2) Hypothyroidism: Code(s): E03.9 - Hypothyroidism, unspecified Qualifiers: Hypothyroidism type: acquired Qualified Code(s): E03.9 - Hypothyroidism, unspecified Plan: Will check TSH and free T4, in the meantime continue with levothyroxine 150 mcg daily in a.m. (3) Primary malignant neoplasm of kidney with metastasis from kidney to other site: Code(s): C64.9 - Malignant neoplasm of unspecified kidney, except renal pelvis Plan: Currently being followed by [facility] Oncology (4) Epigastric pain: Code(s): R10.13 - Epigastric pain Plan: Chronic, will check amylase and lipase and CBC with differential and basic metabolic panel. Currently on pantoprazole and famotidine (5) History of pneumonia: Code(s): Z87.01 - Personal history of pneumonia (recurrent) Plan: Recently completed azithromycin and Augmentin (6) Essential hypertension: Code(s): I10 - Essential (primary) hypertension Plan: Blood pressure elevated today likely due to recent infection, continue lisinopril , hydrochlorothiazide and amlodipine, monitor blood pressure. Orders: Orders Thyroid Stimulating Hormone 12/11/22 R19.7 - Diarrhea, unspecified, E03.9 - Hypothyroidism, unspecified, E55.9 - Vitamin D deficiency, unspecified, C64.9 - Malignant neoplasm of unspecified kidney, except renal pelvis Free T4 (Free Thyroxine) 3 Months E03.9 - Hypothyroidism, unspecified, R19.7 - Diarrhea, unspecified, E55.9 - Vitamin D deficiency, unspecified, C64.9 - Malignant neoplasm of unspecified kidney, except renal pelvis Vitamin D 25-OH Total 12/11/22 R19.7 - Diarrhea, unspecified, E03.9 - Hypothyroidism, unspecified, E55.9 - Vitamin D deficiency, unspecified, C64.9 - Malignant neoplasm of unspecified kidney, except renal pelvis CDiff Gene PCR 12/11/22 R19.7 - Diarrhea, unspecified Basic Metabolic Panel Fasting 12/11/22 R19.7 - Diarrhea, unspecified, E03.9 - Hypothyroidism, unspecified, E55.9 - Vitamin D deficiency, unspecified, C64.9 - Malignant neoplasm of unspecified kidney, except renal pelvis Amylase 12/11/22 R10.13 - Epigastric pain Lipase 12/11/22 R10.13 - Epigastric pain Complete Blood Count Auto Diff 12/11/22 Z87.01 - Personal history of pneumonia (recurrent), R19.7 - Diarrhea, unspecified, D63.8 - Anemia in other chronic diseases classified elsewhere Coding Level of Care Code Est Pt Level 4 (00447) Diagnoses Diarrhea, unspecified type R19.7 Diarrhea type: unspecified type Acquired hypothyroidism E03.9 Hypothyroidism type: acquired Primary malignant neoplasm of kidney with metastasis from kidney to other site C64.9 Epigastric pain R10.13 History of pneumonia Z87.01 Essential hypertension I10
== END 2022-12-11 11:13 | disposition home or self-care (01) ==
PROVIDERS: PCP Internal Medicine; Visit Provider Internal Medicine
DX: R19.7 Diarrhea, unspecified (principal); E03.9 Hypothyroidism, unspecified; C64.9 Malignant neoplasm of unspecified kidney, except renal pelvis; R10.13 Epigastric pain; Z87.01 Personal history of pneumonia (recurrent); I10 Essential (primary) hypertension
CPT/HCPCS: 99214

== ENCOUNTER 2022-12-11 10:30 | Outpatient (REF) | payer OTHER, SELFPAY ==
[2022-12-11 13:16] LABS: MANUAL DIFF FLAG NO
[2022-12-11 13:22] LABS: Basophils Percent Auto 0.5 % (0-2); Eosinophils Absolute Auto 0.2 X10*3/uL (0.0-0.4); Eosinophils Percent Auto 4.9 % (0-4); Hematocrit 35.1 % (42.0-52.0); Hemoglobin 12.4 g/dl (14.0-18.0); Imm Gran Abs Auto 0.01 X10*3/uL (0.00-0.03); Imm Gran Pct Auto 0.3 % (0.0-0.4); Lymphocytes Percent Auto 54.2 % (20-40); Mean Corpuscular HGB Conc 35.3 g/dl (31.0-36.0); Mean Corpuscular Hemoglobin 33.5 pg (27.0-33.0); Mean Corpuscular Volume 94.9 fL (80.0-98.0); Mean Platelet Volume 10.1 fL (9.4-12.4); Monocytes Absolute Auto 0.1 X10*3/uL (0.1-1.2); Monocytes Percent Auto 3.3 % (2-11); Neutrophils Absolute Auto 1.4 x10*3/uL (2.0-8.3); Neutrophils Percent Auto 36.8 % (45-73); Platelet Count 230 X10*3/uL (160-400); Red Cell Distribution Width 14.5 % (11.0-16.0); White Blood Count 3.7 X10*3/uL (4.8-10.8)
[2022-12-11 15:16] LABS: Anion Gap 12 (12-20); Blood Urea Nitrogen 7 mg/dL (9-16); Calcium 8.3 mg/dL (8.4-10.2); Carbon Dioxide 27 mmol/L (22-29); Chloride 105 mmol/L (96-108); Estimated Glomerular Filt Rate > 60; Glucose Fasting 100 mg/dL (60-99); Lipase 14 U/L (8-78); Potassium 3.6 mmol/L (3.3-5.1); Sodium 140 mmol/L (135-145); Thyroid Stimulating Hormone 35.01 uIU/mL (0.32-4.0)
[2022-12-11 15:29] LABS: Amylase 65 U/L (28-100)
== END 2022-12-11 10:31 | disposition home or self-care (01) ==
LOC: HO.HMGCLDS 10:30
PROVIDERS: PCP Internal Medicine; Visit Provider Internal Medicine
DX: R10.13 Epigastric pain (principal); D63.8 Anemia in other chronic diseases classified elsewhere; R19.7 Diarrhea, unspecified; E03.9 Hypothyroidism, unspecified; E55.9 Vitamin D deficiency, unspecified; C64.9 Malignant neoplasm of unspecified kidney, except renal pelvis; Z87.01 Personal history of pneumonia (recurrent)
CPT/HCPCS: 36415; 80048; 82150; 82306; 83690; 84443; 85025

== ENCOUNTER 2023-03-30 11:47 | Outpatient (AMB) | payer MEDICARE, MEDICAID, SELFPAY ==
[2023-03-30 11:51] VITALS: BP 158/80; PULSE 79; O2SAT 97; BMI 28.2
--- NOTE | 2023-03-30 11:51 | A.OFFPC_ITS ---
Vital Signs 03/30/23 11:51 Height 5 ft 7 in Weight 180 lb BMI 28.2 BP 158/80 H Blood Pressure Location Rt brachial Position Sitting Pulse 79 Pulse Source Pulse Oximeter Pulse Oximetry (%) 97 Oxygen Delivery Method Room Air Intake Visit Reasons: medication follow up Intake Note: Pt is here today for his medication f/u Allergies shellfish derived Allergy (Severe, Verified 03/30/23 12:26) Anaphylaxis Medication List - Last Reconciled 03/30/23 by Preeti Ernandez MD albuterol sulfate 90 mcg/actuation (ProAir HFA) 2 puffs inhalation Q6H PRN alcohol swabs (Alcohol Pads) 1 pad topical TID amlodipine 10 mg PO DAILY cholecalciferol (vitamin D3) 50,000 units PO QWEEK 3 months dicyclomine 20 mg PO ONCE escitalopram oxalate 20 mg PO DAILY famotidine 40 mg PO DAILY fentanyl 50 mcg/hr 1 patch topical Q3D [four prong cane use as directed; ] gemfibrozil 600 mg PO BID hydrochlorothiazide 12.5 mg PO QAM insulin degludec (Tresiba FlexTouch U-200 insulin) 120 units subcut BEDTIME insulin lispro (Humalog KwikPen U-200 Insulin) subcut levothyroxine 150 mcg PO DAILY lisinopril 40 mg PO DAILY ondansetron HCl 8 mg PO ONCE PRN pantoprazole 40 mg PO DAILY rosuvastatin 5 mg PO Q2D 3 months sunitinib malate 0 mg PO Tobacco use date assessed: 03/30/23 Fall risk assessment: No Falls in past year Last assessed Fall Risk: 03/30/23 Dental Screening Dental Screen Date: 03/30/23 Did you have a dental visit in the last 12 months?: Yes Did you have a dental problem in the last 6 months where you did not have access to dental care?: Yes Was dental information given to patient?: Patient has dentist HPI medication follow up HPI Details 67-year-old male here today for follow-u p on his lipids, currently taking gemfibrozil and rosuvastatin. Overdue to get his repeat fasting labs done. He has poorly controlled diabetes mellitus, with hemoglobin A1c today at 11.9%, currently being followed by Dr. Singh, has an appointment for follow-up with her in 2 weeks. He has depression anxiety, currently on citalopram. It has been helping but there are still days when he would get very depressed and anxious especially when left alone at home. Declined referral for therapy in the past and at present. 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 Brother Substance use disorder Sister No problems noted. Sister No problems noted. Sister No problems noted. Son No problems noted. Son No problems noted. Social History Housing: Other Housing Other:: mobile home Alcohol intake: never Patient Tobacco Use Status: Never used Tobacco e-Cigarette/Vaping Use: Never Used service: No Current occupational status: unemployed Cognitive needs: Yes Hearing needs: No Vision needs: Yes Questionnaire PHQ-9 Over the last 2 weeks, how often have you been bothered by any of the following problems? 1. Little interest or pleasure in doing things: nearly every day 2. Feeling down, depressed, or hopeless: nearly every day 3. Trouble falling or staying asleep, or sleeping too much: nearly every day 4. Feeling tired or having little energy: nearly every day 5. Poor appetite or overeating: nearly every day 6. Feeling bad about yourself - or that you are a failure or have let yourself or your family down: more than half the days 7. Trouble concentrating on things, such as reading the newspaper or watching television: nearly every day 8. Moving or speaking so slowly that other people could have noticed. Or the opposite - being so fidgety or restless that you have been moving around a lot more than usual: nearly every day 9. Thoughts that you would be better off or of hurting yourself in some way: not at all Total score: 23 Depression Screening Interpretation: Positive Depression Screening Follow-up: Existing condition, In treatment, New Medication prescribed and Declines treatment (Declines referral for therapy/counseling) Depression Screening Done: Yes 01480 - PHQ-9 Billing: Yes Source: Developed by Drs. Kendall Mckinnon, Mary Wetzel, Tee Moore and colleagues, with an educational estella from [employer]. Thrive Questionnaire Date Thrive assessed: 03/30/23 I am a: Patient What is your living situation today?: I have a steady place to live Within the past 12 months, did the food you bought not last and you didn't have the money to get more?: Sometimes True Within the past 12 months, did you worry whether your food would run out before you got money to buy more?: Sometimes True Do you have trouble paying for medicines?: No Do you have trouble getting transportation to medical appointments?: Yes Do you have trouble paying your heating and electricity bill?: No Do you have trouble taking care of your child, family member or friend?: No Do you have trouble with day-to-day activities such as bathing, preparing meals, shopping, managing finances, etc.?: Yes Are you currently unemployed and looking for a job?: No Are you interested in more education?: No THRIVE Score: 3 AUDIT C Alcohol Use Questionnaire (AUDIT-C) 1. How often do you have a drink containing alcohol?: Never Total Score: 0 CRISS-7 AMB Questionnaire CRISS-7 Date CRISS - 7 assessed: 03/30/23 Feeling nervous, anxious, or on edge: 2 = More than half the days Not being able to stop or control worryin = Nearly every day Worrying too much about different things: 3 = Nearly every day Trouble relaxin = Nearly every day Being so restless that it is hard to sit still: 3 = Nearly every day Becoming easily annoyed or irritable: 2 = More than half the days Feeling afraid as if something awful might happen: 3 = Nearly every day Total CRISS-7 score (0-4 normal; 5-9 mild; 10-14 moderate; 15-21 severe): 19 Source: Developed by Drs. Kendall Mckinnon, Mary Wetzel, Tee Moore and colleagues, with an educational estella from [employer]. CRISS-7 Assessment Billing CRISS-7 Assessment Tool: CRISS-7 Assessment 50827 Review of Systems Const Reports fatigue (Easy fatigability) and Denies fever(s) ENT Reports dry mouth, Denies nasal congestion, Denies sinus pain and Denies sore throat Card Denies chest pain, Denies chest pain with activity, Denies edema and Denies dyspnea Resp Denies cough, Denies dyspnea and Denies wheezing GI Reports abdominal pain (Chronic), Denies melena, Reports bloating and Denies hematochezia Musc Reports arthralgias (Both knees) and Denies joint swelling Skin/Breast Denies lesions and Denies rash Endo Reports fatigue (Easy fatigability), Denies polyphagia, Denies polydipsia and Reports polyuria (Occasionally at night) Carlos Manuel/Lymph Reports no additional complaints Aller/Immun Denies wheezing Physical exam (Primary Care) Vital Signs: Last Vital Signs Pulse 79 03/30/23 11:51 BP 158/80 H 03/30/23 11:51 Pulse Ox 97 03/30/23 11:51 Oxygen Delivery Method Room Air 03/30/23 11:51 BMI result Body Mass Index 28.2 Tobacco/Smoking Status: Tobacco use Status Tobacco use date assessed 03/30/23 03/30/23 11:52 Patient Tobacco Use Status Never used Tobacco 03/30/23 11:52 e-Cigarette/Vaping Use Never Used 03/30/23 11:52 PHQ-9: PHQ-9 Score PHQ-9: Total score 23 03/30/23 12:55 Depression Screening Interpretation: Positive Depression Screening Follow-up: Existing condition, In treatment, New Medication prescribed and Declines treatment (Declines referral for therapy/counseling) Thrive Assessment: Date of Thrive Assessment Date Thrive assessed 03/30/23 03/30/23 12:55 Const Other: Alert oriented x3, no acute cardiorespiratory distress noted Orientation/consciousness: patient oriented x3 HENMT Ears: external ears normal General nose exam: Normal external nose present Face and sinus: Yes face symmetric Mouth: oropharynx normal and moist mucous membranes Neck Neck: Yes full ROM, Yes no lymphadenopathy and Yes supple Resp Auscultation: clear to auscultation bilaterally Cardio Other: S1-S2 present regular rate and rhythm GI Inspection: Yes obesity Palpation (GI): Tenderness to palpation present (GI) in the epigastrum and in the RUQ and no guarding Auscultation: Hyperactive bowel sounds present Neuro General: patient oriented x3, moves all extremities, no focal motor deficits and decrease sensation to monofilament (Both feet) Extrem General: Yes normal to inspection and Yes full ROM Results AMB Hemoglobin A1c AMB Hemoglobin A1c 11.9 % Last Edit by Chandni Salazar CMA on 03/30/23 12:11 Results Reviewed Results Reviewed: Laboratory Last Values Hgb A1c (Clinic) 11.9 % (4.0-6.0) H 03/30/23 12:00 Assessment and Plan Assessment & Plan (1) Mixed dyslipidemia: Code(s): E78.2 - Mixed hyperlipidemia Plan: Fasting labs ordered. Continue with gemfibrozil and rosuvastatin, in addition to adhering to healthy eating habits. (2) Mixed anxiety and depressive disorder: Code(s): F41.8 - Other specified anxiety disorders Plan: Continue with escitalopram had an buspirone 5 mg per tablet to take 1 tablet twice a day and may take an extra dose as needed for acute anxiety attacks. Declines referral for therapy. 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: Code(s): C64.9 - Malignant neoplasm of unspecified kidney, except renal pelvis Plan: Has appointment with his oncologist next week Orders: Orders Lipid Panel 03/30/23 E78.2 - Mixed hyperlipidemia Aspartate Amino Transferase 03/30/23 E78.2 - Mixed hyperlipidemia AMB Hemoglobin A1c 03/30/23 Z13.9 - Encounter for screening, unspecified Alanine Aminotransferase 03/30/23 E78.2 - Mixed hyperlipidemia Medications: New buspirone 5 mg PO TID 90 tabs 0RF Coding Level of Care Code Est Pt Level 3 (03666) Diagnoses Mixed dyslipidemia E78.2 Mixed anxiety and depressive disorder F41.8 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
== END 2023-03-30 12:55 | disposition home or self-care (01) ==
PROVIDERS: PCP Internal Medicine; Visit Provider Internal Medicine
DX: E11.65 Type 2 diabetes mellitus with hyperglycemia (principal); C64.9 Malignant neoplasm of unspecified kidney, except renal pelvis; F33.41 Major depressive disorder, recurrent, in partial remission; E78.2 Mixed hyperlipidemia; F41.8 Other specified anxiety disorders
CPT/HCPCS: 83036; 96127; 99213

== ENCOUNTER 2023-03-30 13:00 | Outpatient (REF) | payer MEDICARE, MEDICAID, SELFPAY ==
[2023-03-30 16:46] LABS: Alanine Aminotransferase 21 U/L (0-40); Aspartate Amino Transferase 57 U/L (5-37); Cholesterol 336 mg/dL (<200); HDL Cholesterol 42 mg/dL (>40)
[2023-03-30 16:53] LABS: Triglycerides 1654 mg/dL (<150)
[2023-03-30 17:03] LABS: Free T4 (Free Thyroxine) 0.87 ng/dL (0.71-1.85); Thyroid Stimulating Hormone 21.07 uIU/mL (0.32-4.0)
== END 2023-03-30 13:01 | disposition home or self-care (01) ==
LOC: HO.HMGCLDS 13:00
PROVIDERS: PCP Internal Medicine; Visit Provider Internal Medicine
DX: E03.9 Hypothyroidism, unspecified (principal); R19.7 Diarrhea, unspecified; E55.9 Vitamin D deficiency, unspecified; C64.9 Malignant neoplasm of unspecified kidney, except renal pelvis; E78.2 Mixed hyperlipidemia
CPT/HCPCS: 36415; 80061; 84439; 84443; 84450; 84460

== ENCOUNTER 2023-04-27 15:50 | Outpatient (AMB) | payer OTHER, SELFPAY ==
--- NOTE | 2023-04-27 15:53 | A.OFFPC_ITS ---
Intake Visit Reasons: 4 week follow up I phone Allergies shellfish derived Allergy (Severe, Verified 04/27/23 16:25) Anaphylaxis Medication List - Last Reconciled 04/27/23 by Preeti Ernandez MD albuterol sulfate 90 mcg/actuation (ProAir HFA) 2 puffs inhalation Q6H PRN alcohol swabs (Alcohol Pads) 1 pad topical TID amlodipine 10 mg PO DAILY buspirone 5 mg PO TID cholecalciferol (vitamin D3) 50,000 units PO QWEEK 3 months dicyclomine 20 mg PO ONCE escitalopram oxalate 20 mg PO DAILY famotidine 40 mg PO DAILY fentanyl 50 mcg/hr 1 patch topical Q3D [four prong cane use as directed; ] gemfibrozil 600 mg PO BID hydrochlorothiazide 12.5 mg PO QAM insulin degludec (Tresiba FlexTouch U-200 insulin) 120 units subcut BEDTIME insulin lispro (Humalog KwikPen U-200 Insulin) subcut levothyroxine 150 mcg PO DAILY lisinopril 40 mg PO DAILY ondansetron HCl 8 mg PO ONCE PRN pantoprazole 40 mg PO DAILY rosuvastatin 5 mg PO Q2D 3 months sunitinib malate 0 mg PO Tobacco use date assessed: 04/27/23 Fall risk assessment: No Falls in past year Last assessed Fall Risk: 04/27/23 Dental Screening Dental Screen Date: 04/27/23 Did you have a dental visit in the last 12 months?: Yes Did you have a dental problem in the last 6 months where you did not have access to dental care?: No Was dental information given to patient?: Patient has dentist HPI 4 week follow up [id number] I phone HPI Details 59-year-old male with poorly controlled diabetes mellitus currently followed by endocrine clinic at [facility], with mixed dyslipidemia, here today for follow-up via telehealth . He has been compliant with taking his medications, has been following recommended diet, but has not been able to exercise regularly. Latest fasting labs showed markedly elevated triglycerides, and elevated total cholesterol with mild elevation in his AST and hi TSH , with low normal free T4. Currently takes gemfibrozil, rosuvastatin. 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 Brother Substance use disorder Sister No problems noted. Sister No problems noted. Sister No problems noted. Son No problems noted. Son No problems noted. Social History Housing: Other Housing Other:: mobile home Alcohol intake: never Patient Tobacco Use Status: Never used Tobacco e-Cigarette/Vaping Use: Never Used service: No Current occupational status: unemployed Cognitive needs: Yes Hearing needs: No Vision needs: Yes Questionnaire Thrive Questionnaire Date Thrive assessed: 03/30/23 CRISS-7 AMB Questionnaire CRISS-7 Date CRISS - 7 assessed: 03/30/23 Source: Developed by Drs. Kendall Mckinnon, Mary Wetzel, Tee Moore and colleagues, with an educational estella from [employer]. Review of Systems Const Reports fatigue (Easy fatigability) and Denies fever(s) ENT Reports dry mouth, Denies nasal congestion, Denies sinus pain and Denies sore throat Card Denies chest pain, Denies chest pain with activity, Denies edema and Denies dyspnea Resp Denies cough, Denies dyspnea and Denies wheezing GI Reports abdominal pain (Chronic), Denies melena, Reports bloating and Denies hematochezia Musc Reports arthralgias (Both knees) and Denies joint swelling Skin/Breast Denies lesions and Denies rash Endo Reports fatigue (Easy fatigability), Denies polyphagia, Denies polydipsia and Reports polyuria (Occasionally at night) Carlos Manuel/Lymph Reports no additional complaints Aller/Immun Denies wheezing Physical exam (Primary Care) Tobacco/Smoking Status: Tobacco use Status Tobacco use date assessed 04/27/23 04/27/23 15:56 Patient Tobacco Use Status Never used Tobacco 04/27/23 15:56 e-Cigarette/Vaping Use Never Used 04/27/23 15:56 Thrive Assessment: Date of Thrive Assessment Date Thrive assessed 03/30/23 04/27/23 15:56 Telehealth Telehealth Location of provider rendering services: practice address Location of patient: address on file Patient Identification confirmed using: Name, : Yes Telehealth method: video Patient verbally consented to treatment: Yes Patient verbally consented to billing insurance company: Yes Patient informed of any privacy concerns related to visit: Yes Minutes spent on Phone/Video with Pt.: 15 Results Reviewed Results Reviewed: Name: Ifeanyi Bonner Age/Sex: 67/M : 1955 Unit#: [id number] Attend Dr: Preeti Ernandez MD Re03/30/23 Status: DEP REF Location: [facility] Disch: SPEC : [id number] DELMA: 03/30/23 STATUS: COMP REQ : [id number] RECD: 03/30/23-[address]: Preeti Ernandez MD COMP: 03/30/23-1702 ENTERED: 03/30/23-[address]: ORDERED: AST, ALT, Lipid Panel, Free T4, TSH Test Result Flag Reference AST (GOT) 57 H 5-37 U/L Lipemic Specimen ALT (GPT) 21 0-40 U/L Lipemic Specimen Triglyceride 1654 H <150 mg/dL Lipemic Specimen Desirable Triglyceride: less than 150 mg/dL Borderline High Triglyceride 150-199 mg/dL High Triglyceride: 200-499 mg/dL Very High Triglyceride: greater than or equal to 5OO mg/dL Cholesterol 336 H <200 mg/dL Lipemic Specimen Desirable Cholesterol: less than 200 mg/dL Borderline High Cholesterol: 200-239 mg/dL High Cholesterol: greater than 239 mg/dL LDL Calculated Test not performed <100 mg/dL Unable to calculate the LDL. The formula of Friedwald, Blackwell, and Henok is only valid if the triglycerides are less than 400 mg/dl. HDL 42 >40 mg/dL Lipemic Specimen Desirable HDL: greater than 40 mg/dL Note: This HDL assay may give artificially low results in patients with liver disease. Free T4 0.87 0.71-1.85 ng/dL TSH 3rd Gen. 21.07 H 0.32-4.0 uIU/mL Consistent with previous results. Note: A sustained TSH level above 2.5 uIU/mL may warrant further investigation. TSH 3rd Generation ([facility]) Assessment and Plan Assessment & Plan (1) Mixed dyslipidemia: Code(s): E78.2 - Mixed hyperlipidemia Plan: Discontinue gemfibrozil, started on fenofibrate micronized 200 mg per tablet to take once a day, in addition to Winston 3 fatty acid ethyl esters, 2 capsules twice a day and continued on rosuvastatin 5 mg every other day. Reinforced importance of following recommended diet, will repeat another fasting lipid panel, liver enzymes and LDL cholesterol direct in 4 months. Orders: Orders Alanine Aminotransferase 07/31/23 E78.2 - Mixed hyperlipidemia Lipid Panel 07/31/23 E78.2 - Mixed hyperlipidemia LDL Cholesterol Direct 07/31/23 E78.2 - Mixed hyperlipidemia Aspartate Amino Transferase 07/31/23 E78.2 - Mixed hyperlipidemia Medications: New fenofibrate micronized 200 mg PO QPM 90 caps 1RF omega-3 acid ethyl esters (Lovaza) 2 caps PO BID 360 caps 1RF 90 days fenofibrate micronized 200 mg PO QPM 90 caps 1RF Refilled escitalopram oxalate 20 mg PO DAILY 90 tabs 1RF Discontinued gemfibrozil Discontinued Reason: Doctor's Order 600 mg PO BID 180 tabs 1RF Coding Level of Care Code Tele Est Pt Level 3 (54207) Diagnoses Mixed dyslipidemia E78.2
== END 2023-04-29 11:52 | disposition home or self-care (01) ==
PROVIDERS: PCP Internal Medicine; Visit Provider Internal Medicine
DX: E78.2 Mixed hyperlipidemia (principal)
CPT/HCPCS: 99213

== ENCOUNTER 2023-07-29 10:15 | Outpatient (REF) | payer OTHER, SELFPAY ==
[2023-07-29 14:19] LABS: Alanine Aminotransferase 24 U/L (0-40); Aspartate Amino Transferase 63 U/L (5-37); Cholesterol 251 mg/dL (<200); HDL Cholesterol 33 mg/dL (>40); Magnesium 1.4 mg/dL (1.6-2.6); Triglycerides 733 mg/dL (<150)
[2023-07-31 11:13] LABS: LDL Cholesterol Direct 108 mg/dL (<100)
== END 2023-07-29 10:16 | disposition home or self-care (01) ==
LOC: HO.HMGCLDS 10:15
PROVIDERS: PCP Internal Medicine; Visit Provider Internal Medicine
DX: E78.2 Mixed hyperlipidemia (principal); R79.0 Abnormal level of blood mineral; R97.0 Elevated carcinoembryonic antigen [CEA]
CPT/HCPCS: 36415; 80061; 83721; 83735; 84450; 84460

== ENCOUNTER 2023-08-27 11:23 | Outpatient (AMB) | payer OTHER, SELFPAY ==
--- NOTE | 2023-08-27 11:18 | A.OFFPC_ITS ---
Intake Visit Reasons: Follow-up lab Intake Note: Pt is here today for his f/u labs Allergies shellfish derived Allergy (Severe, Verified 08/27/23 11:29) Anaphylaxis Medication List - Last Reconciled 08/27/23 by Preeti Ernandez MD albuterol sulfate 90 mcg/actuation (ProAir HFA) 2 puffs inhalation Q6H PRN alcohol swabs (Alcohol Pads) 1 pad topical TID amlodipine 10 mg PO DAILY buspirone 5 mg PO TID 3 months cholecalciferol (vitamin D3) 50,000 units PO QWEEK 3 months dicyclomine 20 mg PO DAILY escitalopram oxalate 20 mg PO DAILY famotidine 40 mg PO DAILY fenofibrate micronized 200 mg PO QPM fentanyl 50 mcg/hr 1 patch topical Q3D [four prong cane use as directed; ] hydrochlorothiazide 12.5 mg PO QAM insulin degludec (Tresiba FlexTouch U-200 insulin) 120 units subcut BEDTIME insulin lispro (Humalog KwikPen U-200 Insulin) subcut levothyroxine 150 mcg PO DAILY lisinopril 40 mg PO DAILY magnesium oxide 250 mg PO DAILY omega-3 acid ethyl esters (Lovaza) 2 caps PO BID 90 days ondansetron HCl 8 mg PO ONCE PRN pantoprazole 40 mg PO DAILY rosuvastatin 5 mg PO Q2D 3 months sunitinib malate 0 mg PO Tobacco use date assessed: 08/27/23 Fall risk assessment: 1 Fall in past year Last assessed Fall Risk: 08/27/23 Dental Screening Dental Screen Date: 08/27/23 Did you have a dental visit in the last 12 months?: Yes Did you have a dental problem in the last 6 months where you did not have access to dental care?: No Was dental information given to patient?: Patient has dentist HPI HPI Comments History of Present Illness Details 59-year-old male with renal CA with meta stasis , diabetes mellitus, hypertension, vitamin-D deficiency and depression, here today for follow-up on his labs. He has been compliant with taking his medications and tries to stay active. However he is limited with his activity due to recurrent pain in his lower abdomen. 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 Brother Substance use disorder Sister No problems noted. Sister No problems noted. Sister No problems noted. Son No problems noted. Son No problems noted. Social History Housing: Other Housing Other:: mobile home Alcohol intake: never Patient Tobacco Use Status: Never used Tobacco e-Cigarette/Vaping Use: Never Used service: No Current occupational status: unemployed Cognitive needs: Yes Hearing needs: No Vision needs: Yes Questionnaire Thrive Questionnaire Date Thrive assessed: 03/30/23 CRISS-7 AMB Questionnaire CRISS-7 Date CRISS - 7 assessed: 03/30/23 Source: Developed by Drs. Kendall Mckinnon, Mary Wetzel, Tee Moore and colleagues, with an educational estella from [employer]. Review of Systems Const Reports fatigue (Easy fatigability) and Denies fever(s) Eyes Denies change in vision ENT Reports dry mouth, Denies nasal congestion, Denies sinus pain and Denies sore throat Card Denies chest pain, Denies chest pain with activity, Denies edema and Denies dyspnea Resp Denies cough, Denies dyspnea and Denies wheezing GI Reports abdominal pain (Chronic), Denies melena, Reports bloating and Denies hematochezia Reports no additional complaints Musc Reports arthralgias (Both knees) and Denies joint swelling Skin/Breast Denies lesions and Denies rash Endo Reports fatigue (Easy fatigability), Denies polyphagia, Denies polydipsia and Reports polyuria (Occasionally at night) Carlos Manuel/Lymph Reports no additional complaints Aller/Immun Denies wheezing Physical exam (Primary Care) Tobacco/Smoking Status: Tobacco use Status Tobacco use date assessed 08/27/23 08/27/23 11:21 Patient Tobacco Use Status Never used Tobacco 08/27/23 11:18 e-Cigarette/Vaping Use Never Used 08/27/23 11:18 Thrive Assessment: Date of Thrive Assessment Date Thrive assessed 03/30/23 08/27/23 11:18 Telehealth Telehealth Telehealth Platform: [employer] Location of provider rendering services: practice address Location of patient: address on file Patient Identification confirmed using: Name, : Yes Telehealth method: video Patient verbally consented to treatment: Yes Patient verbally consented to billing insurance company: Yes Patient informed of any privacy concerns related to visit: Yes Minutes spent on Phone/Video with Pt.: 15 Results Reviewed Results Reviewed: Name: Ifeanyi Bonner Age/Sex: 67/M : 1955 Unit#: [id number] Attend Dr: Preeti Ernandez MD Re07/29/23 Status: DEP [facility]F [facility] Disch: SPEC : [id number] DELMA: 07/29/23 STATUS: COMP REQ : [id number] RECD: 07/29/23-[address]: Preeti Ernandez MD COMP: 07/29/23-1418 ENTERED: 07/29/23-[address]: ORDERED: MG, AST, ALT, Lipid Panel Test Result Flag Reference Magnesium 1.4 *L 1.6-2.6 mg/dL Critical value for MAGS: Results called to and read back by: JUAN Person calling: GUILLAUME Date: 07/29/23 Time: 1419 AST (GOT) 63 H 5-37 U/L ALT (GPT) 24 0-40 U/L Triglyceride 733 H <150 mg/dL Desirable Triglyceride: less than 150 mg/dL Borderline High Triglyceride 150-199 mg/dL High Triglyceride: 200-499 mg/dL Very High Triglyceride: greater than or equal to 5OO mg/dL Cholesterol 251 H <200 mg/dL Desirable Cholesterol: less than 200 mg/dL Borderline High Cholesterol: 200-239 mg/dL High Cholesterol: greater than 239 mg/dL LDL Calculated Test not performed <100 mg/dL Unable to calculate the LDL. The formula of Friedwald, Blackwell, and Henok is only valid if the triglyceride s are less than 400 mg/dl. HDL 33 L >40 mg/dL Desirable HDL: greater than 40 mg/dL Note: This HDL assay may give artificially low results in patients with liver disease. Assessment and Plan Assessment & Plan (1) Mixed dyslipidemia: Code(s): E78.2 - Mixed hyperlipidemia Plan: Marked improvement in his triglyceride levels noted on recent labs done. Continue with rosuvastatin 5 mg every 2 days and fenofibrate 200 mg daily in the evening. Continue with adherence to healthy eating habits and regular exercise. Will repeat labs again (2) Nocturnal leg cramps: Code(s): G47.62 - Sleep related leg cramps Plan: Magnesium level low at 1.4 mg/dL. Continue with Mag oxide (3) Hypomagnesemia: Code(s): E83.42 - Hypomagnesemia Plan Continue with magnesium oxide 1 tablet daily Orders: Orders Lipid Panel 12/31/23 E78.2 - Mixed hyperlipidemia, E83.42 - Hypomagnesemia, G47.62 - Sleep related leg cramps Alanine Aminotransferase 12/31/23 E78.2 - Mixed hyperlipidemia, E83.42 - Hypomagnesemia, G47.62 - Sleep related leg cramps Aspartate Amino Transferase 12/31/23 E78.2 - Mixed hyperlipidemia, E83.42 - Hypomagnesemia, G47.62 - Sleep related leg cramps LDL Cholesterol Direct 12/31/23 E78.2 - Mixed hyperlipidemia, E83.42 - Hypomagnesemia, G47.62 - Sleep related leg cramps Magnesium 12/31/23 E78.2 - Mixed hyperlipidemia, E83.42 - Hypomagnesemia, G47.62 - Sleep related leg cramps Medications: Refilled omega-3 acid ethyl esters (Lovaza) 2 caps PO BID 90 days 360 caps 1RF fenofibrate micronized 200 mg PO QPM 90 caps 1RF Coding Level of Care Code Tele Est Pt Level 4 (98547) Complex EM visit Add On G2211 Diagnoses Mixed dyslipidemia E78.2 Nocturnal leg cramps G47.62 Hypomagnesemia E83.42
== END 2023-08-27 13:21 | disposition home or self-care (01) ==
LOC: HO.HMGC 11:23
PROVIDERS: PCP Internal Medicine; Visit Provider Internal Medicine
DX: E78.2 Mixed hyperlipidemia (principal); G47.62 Sleep related leg cramps; E83.42 Hypomagnesemia
CPT/HCPCS: 99214; G2211

== ENCOUNTER 2023-09-29 11:45 | Outpatient (REF) | payer OTHER, SELFPAY ==
[2023-09-29 13:51] LABS: Magnesium 1.7 mg/dL (1.6-2.6)
== END 2023-09-29 11:46 | disposition home or self-care (01) ==
LOC: HO.HMGCLDS 11:45
PROVIDERS: PCP Internal Medicine; Visit Provider Internal Medicine
DX: E83.42 Hypomagnesemia (principal)
CPT/HCPCS: 36415; 83735

== ENCOUNTER 2023-12-29 10:18 | Outpatient (REF) | payer OTHER, SELFPAY ==
[2023-12-29 13:49] LABS: Alanine Aminotransferase 13 U/L (0-40); Anion Gap 12 (12-20); Aspartate Amino Transferase 56 U/L (5-37); Blood Urea Nitrogen 9 mg/dL (9-16); Calcium 8.8 mg/dL (8.4-10.2); Carbon Dioxide 25 mmol/L (22-29); Chloride 104 mmol/L (96-108); Cholesterol 282 mg/dL (<200); Estimated Glomerular Filt Rate 48; Glucose Fasting 171 mg/dL (60-99); HDL Cholesterol 47 mg/dL (>40); Potassium 4.1 mmol/L (3.3-5.1); Sodium 137 mmol/L (135-145); Triglycerides 588 mg/dL (<150)
[2023-12-29 13:51] LABS: Magnesium 1.4 mg/dL (1.6-2.6)
[2023-12-30 22:19] LABS: LDL Cholesterol Direct 142 mg/dL (<100)
== END 2023-12-29 10:19 | disposition home or self-care (01) ==
LOC: HO.HMGCLDS 10:18
PROVIDERS: PCP Internal Medicine; Visit Provider Internal Medicine
DX: E83.42 Hypomagnesemia (principal); G47.62 Sleep related leg cramps; E78.2 Mixed hyperlipidemia; I10 Essential (primary) hypertension
CPT/HCPCS: 36415; 80048; 80061; 83721; 83735; 84450; 84460

== ENCOUNTER 2024-01-05 12:29 | Outpatient (REF) | payer OTHER, SELFPAY | END 2024-01-05 12:30 | disposition home or self-care (01) | LOC: HO.HMGCLDS 12:29 | PROVIDERS: PCP Internal Medicine; Visit Provider Internal Medicine | DX: E03.9 Hypothyroidism, unspecified (principal); I10 Essential (primary) hypertension; E78.2 Mixed hyperlipidemia; E72.20 Disorder of urea cycle metabolism, unspecified; E83.42 Hypomagnesemia | CPT/HCPCS: 36415; 99212 ==

== ENCOUNTER 2024-01-05 12:29 | Outpatient (AMB) | payer OTHER, SELFPAY ==
--- NOTE | 2024-01-05 13:18 | MHC.PC.OV ---
Vital Signs 01/05/24 13:19 Height 5 ft 7 in Weight 202 lb BMI 31.6 BP 148/70 H Blood Pressure Location Rt brachial Position Sitting Pulse 68 Pulse Source Pulse Oximeter Pulse Oximetry (%) 97 Oxygen Delivery Method Room Air Intake Visit Reasons: Karen HDF/lab results Intake Note: Pt is here today for HDF [facility] and lab results Allergies shellfish derived Allergy (Severe, Verified 01/05/24 13:49) Anaphylaxis Medication List - Last Reconciled 01/05/24 by Preeti Ernandez MD albuterol sulfate 90 mcg/actuation 2 puffs inhalation Q6H PRN alcohol swabs (Alcohol Pads) 1 pad topical TID buspirone 5 mg PO TID 3 months carvedilol 3.125 mg PO BID dicyclomine 20 mg PO DAILY escitalopram oxalate 20 mg PO DAILY famotidine 40 mg PO DAILY fenofibrate micronized 200 mg PO QPM fentanyl 50 mcg/hr 1 patch topical Q3D [four prong cane use as directed; ] hydrochlorothiazide 12.5 mg PO QAM insulin degludec (Tresiba FlexTouch U-200 insulin) 120 units subcut BEDTIME insulin lispro (Humalog KwikPen U-200 Insulin) subcut levothyroxine 1 tablet daily for 6 days per wk, 1.5tab x 1 day per wk orally daily; loperamide 2 mg PO Q6H magnesium oxide 250 mg PO DAILY ondansetron HCl 8 mg PO ONCE PRN pantoprazole 40 mg PO DAILY rosuvastatin 5 mg PO Q2D sunitinib malate 0 mg PO Tobacco use date assessed: 01/05/24 Fall risk assessment: No Falls in past year Last assessed Fall Risk: 01/05/24 Dental Screening Dental Screen Date: 01/05/24 Did you have a dental visit in the last 12 months?: Yes Did you have a dental problem in the last 6 months where you did not have access to dental care?: No Was dental information given to patient?: Patient has dentist HPI Karen HARO/lab results HPI Details 68-year-old male with history of 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 . He was sent to to the ER by his home health aide as blood pressure was extremely high when they measured it at home with a reading of 220/100. During all this time patient was asymptomatic. During last admission at the hospital, his lisinopril and amlodipine was stopped due to KENDALL and was started on carvedilol 3.125 mg taken 1 tablet twice a day.. EKG showed normal sinus rhythm with 68 beats per minute no evidence of ischemia, chemistry showed renal function at baseline with magnesium at 1.7 currently on outpatient magnesium supplementation, negative troponins, TSH was elevated 87 with free T4 results at that time still pending and patient opted due just follow-up with me to get levels adjusted. His dose of carvedilol was increased to 6.25 twice a day and advised to follow-up with PCP does this visit. Blood pressure today is 148/70. Patient denies any headache, no lightheadedness, no shortness of breath or chest pain. He is currently taking carvedilol 6.25 mg twice a day and needs a refill. His TSH during that recent ER visit was elevated at 8 26.91, with a free T4 at 0.68 ng/dl.. Patient currently taking levothyroxine 200 mcg per tablet, takes 1-1/2 tablets (300)mcg on Wednesday and takes 200 mcg daily the rest of the week. Denies any alteration in bowel movements, but does complain of feeling tired all the time. 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 Brother Substance use disorder Sister No problems noted. Sister No problems noted. Sister No problems noted. Son No problems noted. Son No problems noted. Social History Housing: Other Housing Other:: mobile home Alcohol intake: never Patient Tobacco Use Status: Never used Tobacco e-Cigarette/Vaping Use: Never Used service: No Current occupational status: unemployed Cognitive needs: Yes Hearing needs: No Vision needs: Yes Questionnaire Thrive Questionnaire Date Thrive assessed: 03/30/23 CRISS-7 AMB Questionnaire CRISS-7 Date CRISS - 7 assessed: 03/30/23 Source: Developed by Drs. Kendall Mckinnon, Mary Wetzel, Tee Moore and colleagues, with an educational estella from [employer]. Review of Systems Const Reports fatigue (Easy fatigability) and Denies fever(s) Eyes Details: Up-to-date with his diabetes retinopathy screening, sees Dr. Chappell ENT Reports dry mouth and Denies nasal congestion Card Denies chest pain, Denies chest pain with activity, Denies edema and Denies dyspnea Resp Denies cough, Denies dyspnea and Denies wheezing GI Reports abdominal pain (Chronic), Denies melena, Reports bloating and Denies hematochezia Reports no additional complaints Musc Reports arthralgias (Both knees) and Denies joint swelling Skin/Breast Denies lesions and Denies rash Neuro Reports no additional complaints Endo Reports fatigue (Easy fatigability), Denies polyphagia, Denies polydipsia and Reports polyuria (Occasionally at night) Carlos Manuel/Lymph Reports no additional complaints Aller/Immun Denies wheezing Physical exam (Primary Care) Vital Signs: Last Vital Signs Pulse 68 01/05/24 13:19 BP 148/70 H 01/05/24 13:19 Pulse Ox 97 01/05/24 13:19 Oxygen Delivery Method Room Air 01/05/24 13:19 BMI result Body Mass Index 31.6 Tobacco/Smoking Status: Tobacco use Status Tobacco use date assessed 01/05/24 01/05/24 13:21 Patient Tobacco Use Status Never used Tobacco 01/05/24 13:21 e-Cigarette/Vaping Use Never Used 01/05/24 13:21 Thrive Assessment: Date of Thrive Assessment Date Thrive assessed 03/30/23 01/05/24 13:21 Const Other: Alert oriented x3, no acute cardiorespiratory distress noted Orientation/consciousness: patient oriented x3 [facility] General nose exam: Normal external nose present Face and sinus: Yes face symmetric Mouth: oropharynx normal and moist mucous membranes Neck Neck: Yes full ROM, Yes no lymphadenopathy and Yes supple Resp Auscultation: clear to auscultation bilaterally Cardio Other: S1-S2 present regular rate and rhythm GI Inspection: Yes obesity Palpation (GI): Tenderness to palpation present (GI) in the epigastrum and in the RUQ and no guarding Auscultation: Hyperactive bowel sounds present Skin Other: Looks jaundiced Neuro General: patient oriented x3, moves all extremities, no focal motor deficits and decrease sensation to monofilament (Both feet) Extrem General: Yes normal to inspection and Yes full ROM Results Reviewed Results Reviewed: Name: Ifeanyi Bonner Age/Sex: 68/M : 1955 Unit#: [id number] Attend Dr: Preeti Ernandez MD Re12/29/23 Status: DEP REF Location: [facility] Disch: SPEC : [id number] DELMA: 12/29/23 STATUS: COMP REQ : [id number] RECD: 12/29/[address]: Preeti Ernandez MD COMP: 12/29/23 ENTERED: 12/29/23-[address] [facility] [address]: ORDERED: Met Prof Fast, MG, AST, ALT, Lipid Panel Test Result Flag Reference Sodium 137 135-145 mmol/L Potassium 4.1 3.3-5.1 mmol/L CL 104 96-108 mmol/L CO2 25 22-29 mmol/L Gap 12 12-20 BUN 9 9-16 mg/dL Creat 1.45 H 0.5-1.4 mg/dL EGFR 48 NOTE: For -[place]i individuals, multiply the result by 1.210. Chronic Kidney Disease: Estimated GFR < 60 mL/min/1.73m2 Severe Kidney Disease: Estimated GFR < 15 mL/min/1.73m2 FBS 171 H 60-99 mg/dL A fasting glucose of 126 mg/dl or greater on more than one occasion is considered diagnostic of diabetes. CA 8.8 # 8.4-10.2 mg/dL Magnesium 1.4 *L 1.6-2.6 mg/dL Critical value for MAG Results called to and read back by: SCOC Person calling: DIEUDONNE Date: 12/29/23 Time: 1342 AST (GOT) 56 H 5-37 U/L ALT (GPT) 13 0-40 U/L Triglyceride 588 H <150 mg/dL Desirable Triglyceride: less than 150 mg/dL Borderline High Triglyceride 150-199 mg/dL High Triglyceride: 200-499 mg/dL Very High Triglyceride: greater than or equal to 5OO mg/dL Cholesterol 282 H <200 mg/dL Desirable Cholesterol: less than 200 mg/dL Borderline High Cholesterol: 200-239 mg/dL High Cholesterol: greater than 239 mg/dL LDL Calculated Test not performed <100 mg/dL Unable to calculate the LDL. The formula of Friedwald, Blackwell, and Henok is only valid if the triglycerides are less than 400 mg/dl. HDL 47 >40 mg/dL Desirable HDL: greater than 40 mg/dL Coding Level of Care Code Est Pt Level 4 (65028) Complex EM visit Add On G2211 Diagnoses Acquired hypothyroidism E03.9 Hypothyroidism type: acquired Essential hypertension I10 Mixed dyslipidemia E78.2 Hyperammonemia E72.20 Hypomagnesemia E83.42 Assessment & Plan Assessment & Plan (1) Hypothyroidism: Code(s): E03.9 - Hypothyroidism, unspecified Category: Medical Qualifiers: Hypothyroidism type: acquired Qualified Code(s): E03.9 - Hypothyroidism, unspecified Plan: Will increase levothyroxine dose to 300 mcg Wednesday and and then the rest of the week as 200 mcg once a day in a.m.. Recheck again another TSH and free T4 in 2 months, labs printed and given to patient to combined with labs to be ordered by Dr. Singh (2) Essential hypertension: Code(s): I10 - Essential (primary) hypertension Category: Medical Plan: Blood pressure improved, will continue on carvedilol 6.25 mg 1 tablet twice a day, 60 tablets prescribed with 5 refills sent to pharmacy (3) Mixed dyslipidemia: Code(s): E78.2 - Mixed hyperlipidemia Category: Medical Plan: Currently on rosuvastatin 5 mg 1 tablet every other day, refill sent, reviewed recent fasting lab results with patient which did show some improvement in his triglyceride level (4) Hyperammonemia: Code(s): E72.20 - Disorder of urea cycle metabolism, unspecified Plan: Will repeat ammonia low (5) Hypomagnesemia: Code(s): E83.42 - Hypomagnesemia Category: Medical Plan: Rx sent for magnesium oxide 250 mg per tablet taken once a day, advised to see if they can recheck this again when he goes for his follow-up visit with his oncologist next month Orders: Orders Ammonia Today E72.20 - Disorder of urea cycle metabolism, unspecified Thyroid Stimulating Hormone 2 Months E03.9 - Hypothyroidism, unspecified Free T4 (Free Thyroxine) 2 Months E03.9 - Hypothyroidism, unspecified Medications: Changed From rosuvastatin 5 mg PO Q2D 3 months 45 tabs 5RF To rosuvastatin 5 mg PO Q2D From carvedilol must administer with a meal/food 3.125 mg PO BID 180 tabs 0RF I10 - Essential (primary) hypertension To carvedilol must administer with a meal/food 6.25 mg PO BID 1 month 60 tabs 5RF I10 - Essential (primary) hypertension Refilled magnesium oxide 250 mg PO DAILY 30 tabs 1RF
[2024-01-05 13:19] VITALS: BP 148/70; PULSE 68; O2SAT 97; BMI 31.6
== END 2024-01-05 14:26 | disposition home or self-care (01) ==
PROVIDERS: PCP Internal Medicine; Visit Provider Internal Medicine
DX: E03.9 Hypothyroidism, unspecified (principal); I10 Essential (primary) hypertension; E78.2 Mixed hyperlipidemia; E72.20 Disorder of urea cycle metabolism, unspecified; E83.42 Hypomagnesemia

== ENCOUNTER 2024-01-10 11:59 | Outpatient (REF) | payer OTHER, SELFPAY ==
[2024-01-10 12:27] LABS: Ammonia 50 umol/L (13-55)
[2024-01-10 12:38] LABS: Magnesium 1.8 mg/dL (1.6-2.6)
== END 2024-01-10 12:00 | disposition home or self-care (01) ==
LOC: HO.LAB 11:59
PROVIDERS: PCP Internal Medicine; Visit Provider Internal Medicine
DX: E72.20 Disorder of urea cycle metabolism, unspecified (principal); E83.42 Hypomagnesemia
CPT/HCPCS: 36415; 82140; 83735